=== PATIENT | female | born 1990 | race Caucasian/White ===

== ENCOUNTER 2018-05-15 12:41 | Outpatient (REF) | payer MEDICAID, SELFPAY ==
[2018-05-15 22:21] LABS: Anion Gap 7.9 mmol/L (3-11); BUN 11 mg/dL (7-18); CO2 27.1 mmol/L (21.0-32.0); CREATININE 0.77 mg/dL (0.55-1.02); Calcium 9.6 mg/dL (8.5-10.1); Chloride 103 mmol/L (98-107); Glucose 77 mg/dL (70-100); Potassium 3.9 mmol/L (3.5-5.1); Sodium 138 mmol/L (136-145); TSH (W/Ref FT4) 1.37 uIU/mL (0.358-3.74)
== END 2018-05-15 13:01 ==
LOC: NCHCN 12:41
PROVIDERS: PCP Family Medicine; Visit Provider Family Medicine
DX: R00.2 Palpitations (principal)
CPT/HCPCS: 80048; 84443

== ENCOUNTER 2018-05-18 01:40 | Outpatient (CLI) | payer MEDICAID, SELFPAY ==
--- NOTE | 2018-06-25 10:02 | CER_ITS ---
PREVENTICE MONITORING DEVICE DATE OF DICTATION June 25, 2018 INDICATION Palpitations. Analysis period - May 23, 2018 to June 21, 2018. Baseline shows sinus rhythm. There was no significant cyndi arrhythmias or tachyarrhythmias. No runs of SVT or atrial fibrillation. Rare ventricular ectopy. 5 manually detected events with symptoms of lightheadedness or fluttering corresponds to sinus rhythm or sinus tachycardia with occasional isolated PACs or PVCs. Overall no significant tachy or bradyarrhythmias. Ang Nina M.D. ROSALIE/payton T - 06/25/2018
== END 2018-05-18 02:00 ==
PROVIDERS: PCP Family Medicine; Visit Provider Internal Medicine
DX: R00.2 Palpitations (principal); I49.1 Atrial premature depolarization; I49.3 Ventricular premature depolarization
CPT/HCPCS: 93270

== ENCOUNTER 2018-09-05 18:26 | Emergency (ER) | payer MEDICAID, SELFPAY ==
[2018-09-05 18:32] VITALS: BP 129/103; PULSE 92; RESP 18; TEMP 37.1; O2SAT 100
--- NOTE | 2018-09-05 18:47 | W.ED.GENAD ---
Discharge Plan Disposition Patient Disposition: HOME Condition: Good Discharge Details Chief Complaint: RespSymp Clinical Impression: Sinusitis Primary Care Provider: Corinne Marquez ED Provider: Alton Craig Home Meds and New Rx's Prescriptions: New prednisone 50 MG tablet 50 mg PO DAILY Qty: 5 RF: 0 loratadine 10 mg capsule 10 mg PO DAILY Qty: 20 RF: 0 No Action montelukast [Singulair] 10 mg Tablet 10 mg PO QPM RF: 0 fluticasone propionate [Flonase Allergy Relief] 50 mcg/actuation [place],Suspension 1 spray INTRANASAL DAILY RF: 0 Discharge Instructions Instructions: Sinusitis (ED) Additional Instructions: Please stop smoking. Please take the loratadine as an antihistamine as directed. Please take the prednisone starting tomorrow as directed. Please continue to take your Flonase and Singulair. Please use the albuterol inhaler that we are giving you here as directed. Please use the [place] pot as we discussed. If you notice any worsening of your symptoms, or any new symptoms such as vomiting, diarrhea, fever, chills, shortness of breath, chest pain, numbness, weakness, or fainting , please return immediately to the emergency department for reevaluation. Please follow up with your primary care provider as soon as possible for reassessment and reevaluation. As always, it was a pleasure participating in your medical care today. Referrals: Corinne Marquez [Primary Care Provider] - Medical Decision Making This is a 28-year-old female with a past medical history of tobacco abuse who presents with 4 days of sinus congestion, with mild cough. Physical exam demonstrates minimal wheeze in her lungs, no rales or rhonchi. Notable sinus congestion and tight nasal airways. Notable tenderness on percussion of the maxillary sinuses. Signs and symptoms are clinically and consistent with a dural venous sinus thrombosis, meningitis, sepsis, or pneumonia. I do feel her signs and symptoms are clinically consistent with sinusitis. The patient does have a prescription for Flonase and Singulair, she does have Afrin at home, recommend that she continue disease, we will add loratadine, oral steroids, recommendation for [place] pot, and orbital nerve stimulation. We will also give her an albuterol inhaler for her mild wheeze. We discussed red flags for which to return, the importance of smoking cessation, and the importance of close follow-up and the patient understands. I have extensively reviewed the treatment plan and discharge instructions with the patient. I have addressed all patient concerns at this time. The patient was made aware of what symptoms to monitor for that would warrant a return to the emergency department. Discussed the plan with the patient, they demonstrate verbal understanding and agreement with our assessment and plan at this time. HPI General Date/Time Provider Initiated Documentation: 09/05/18 18:33. HPI Narrative: This is a 28-year-old female with a past medical history of tobacco use, who presents today with 4 days of cough notable sinus pressure congestion H. Periods admit she does to temperature at home of 101, however she is afebrile here. She denies any neck pain, headache, chest pain, or more severe shortness of breath. Cough is productive with mild amounts of white sputum. In spite of the symptoms the patient continues to smoke. She did see her primary care provider 2-3 days ago who prescribed Flonase and Singulair, however the patient did not get these filled. Patient denies any other sick contacts at home. 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 Patient has no other complaints at this time, no other modifying factors. She denies any severe frontal or posterior headache, she denies any history of blood clots. She is not on control. Related Data Home Medications Medication Instructions Recorded Confirmed fluticasone propionate [Flonase 1 spray INTRANASAL DAILY 09/05/18 09/05/18 Allergy Relief] loratadine 10 mg PO DAILY #20 cap 09/05/18 montelukast [Singulair] 10 mg PO QPM 09/05/18 09/05/18 prednisone 50 mg PO DAILY #5 tab 09/05/18 Previous Rx's Medication Instructions Recorded loratadine 10 mg PO DAILY #20 cap 09/05/18 prednisone 50 mg PO DAILY #5 tab 09/05/18 Allergies Allergy/AdvReac Type Severity Reaction Status Date / Time No Known Allergies Allergy Unverified 09/05/18 18:40 General Stated Complaint: RespSymp BALDEMAR: 4 Review of Systems Review of Systems All systems reviewed & are unremarkable except as noted in HPI and below PFSH Social History Smoking/Tobacco Use Status: Current every day Tobacco Type: cigarettes Drug use: Never Substance use type: does not use Do you feel safe at home: Yes Do you feel safe in your relationship?: Yes Exam Narrative Exam Narrative: 1.Const: Well-nourished, Well-developed, appearing stated age 2.Eyes: PERRL, no conjunctival injection, and symmetrical lids. 3.ENT: Atraumatic external nose and ears. Moist MM. Neck: Symmetric, trachea midline, No thyromegaly. Notable nasal congestion tenderness over the maxillary sinuses bilaterally. Patient demonstrates good movement of cervical neck. There is no nuchal rigidity, no nuchal tenderness. Patient is able to flex the neck without any difficulty or significant pain. Negative Kernig's and Brudzinski sign. Slightly enlarged tonsils, no significant erythema or tonsillar exudates. 4.CVS: +S1/S2, No murmurs or gallops. Peripheral pulses 2+ and equal in all extremities. Brisk capillary refill in all extremities. 5.RESP: Unlabored respiratory effort. Minimal wheeze, no significant rhonchi or rales. No signs of respiratory distress. 6.GI: Soft, Nontender/Nondistended, No hepatosplenomegaly. No guarding or rebound. 7.MSK: Normocephalic/Atraumatic, Extremities w/o deformity or ttp No cyanosis or clubbing, Normal movement of all extremities 8.Skin: Warm, Dry. No rashes or lesions. 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 Sensation grossly intact, no focal neurologic deficits. 10.Psych: (AAO) x3. Appropriate mood and affect Course Vital Signs Temperature 37.1 C 09/05/18 18:32 Pulse 92 H 09/05/18 18:32 Respiratory Rate 18 09/05/18 18:32 Blood Pressure 129/103 H 09/05/18 18:32 Pulse Oximetry 100 09/05/18 18:32 Temperature 37.1 C 09/05/18 18:32 Temperature Source Temporal Artery Scan 09/05/18 18:32 Pulse 92 H 09/05/18 18:32 Respiratory Rate 18 09/05/18 18:32 Respiratory Effort Non-Labored 09/05/18 18:39 Respiratory Depth Normal 09/05/18 18:39 Blood Pressure 129/103 H 09/05/18 18:32 Blood Pressure Position Sitting 03/23/19 18:32 Pulse Oximetry 100 03/23/19 18:32 Oxygen Delivery Method Room Air 09/05/18 18:32 Oxygen Flow Rate 0 09/05/18 18:32 Pain Level 4 09/05/18 18:32
[2018-09-05] MEDS: predniSONE 20 MG TAB 40 MG PO (18:52)
[2018-09-05] MEDS: Albuterol HFA 8 GM 60 PUFF INH IH (18:53)
[2018-09-05] MEDS: Inhaler, Assist Device 1 EACH MC (18:54)
== END 2018-09-05 19:00 | disposition home or self-care (01) ==
PROVIDERS: Emergency Provider Student in an Organized Health Care Education/Training Program; PCP Family Medicine
DX: J01.90 Acute sinusitis, unspecified (principal); F17.210 Nicotine dependence, cigarettes, uncomplicated
CPT/HCPCS: 99283; J7512

== ENCOUNTER 2018-09-22 07:55 | Emergency (ER) | payer MEDICAID, SELFPAY ==
[2018-09-22 07:56] VITALS: BP 117/80; PULSE 118; RESP 16; TEMP 37.1; O2SAT 100
--- NOTE | 2018-09-22 08:06 | DI.RAD_ITS ---
SYMPTOM/DIAGNOSIS: COUGH,FEVER PA AND LATERAL CHEST: Comparison is made with 05/28/14. The heart is normal in size. The lungs are clear. The mediastinal structures and pleura appear intact. CONCLUSION: Normal chest.
--- NOTE | 2018-09-22 08:08 | W.ED.GENAD ---
Discharge Plan Disposition Patient Disposition: HOME Condition: Improving Discharge Details Chief Complaint: RespSymp Clinical Impression: Viral syndrome Primary Care Provider: Corinne Marquez ED Provider: Rowdy Gabriel Home Meds and New Rx's Prescriptions: New ondansetron HCl [Zofran] 4 mg tablet 4 mg PO QID PRN (Reason: nausea and vomiting) Qty: 10 RF: 0 Continued montelukast [Singulair] 10 mg Tablet 10 mg PO QPM RF: 0 fluticasone propionate [Flonase Allergy Relief] 50 mcg/actuation [place],Suspension 1 spray INTRANASAL DAILY RF: 0 loratadine 10 mg capsule 10 mg PO DAILY Qty: 20 RF: 0 Discharge Instructions Instructions: Viral Syndrome (ED) Additional Instructions: Home to rest. Small, frequent sips of fluids to maintain hydration. May use the prescribed Zofran if needed for nausea. Continue your regular medications. Return for any acute concerns. Medical Decision Making 28yof presents with days of URI; fever, cough, ST, now vomiting. She is slightly tachycardic but otherwise normal VS. DDX includes Flu, Viral syndrome, bronchitis, PNA. IV placed, labs obtained, pt referred for XR. Diagnostics: Negative influenza. Negative strep test chemistries reassuring with note of potassium 3.4. LFTs unremarkable. CBC reveals white count 10, hematocrit 43. Chest x-ray without acute findings. Patient improved with fluids, heart rate significantly corrected from 118-70. Most likely viral syndrome with dehydration. Discussed with her home management as well as follow-up and return precautions. She is stable, improved, appropriate for discharge home at this time. May use Zofran if needed at home. Patient tolerated liquids and solids in the ER prior to discharge. Lab Data Lab results reviewed: Yes I reviewed the patient's lab results. Laboratory Results - last 24 hr 09/22/18 09/22/18 08:05 08:05 WBC 10.19 RBC 4.92 Hgb 15.0 Hct 43.9 MCV 89.2 MCH 30.5 MCHC 34.2 RDW 12.9 Plt Count 144 MPV 12.1 H Immature Gran % 0.2 Neutrophils % 70.6 Lymphocytes % 14.8 Monocytes % 11.5 Eosinophils % 2.8 Basophils % 0.1 Absolute Neutrophils 7.19 H Absolute Lymphocytes 1.51 Absolute Monocytes 1.17 H Absolute Eosinophils 0.29 Absolute Basophils 0.01 Sodium 137 Potassium 3.4 L Chloride 102 Carbon Dioxide 24.8 Anion Gap 10.2 BUN 8 Creatinine 0.72 Estimated GFR/1.73 m2 >= 60.00 Glucose 92 Calcium 9.0 Total Bilirubin 1.0 AST 13 L ALT 14 Alkaline Phosphatase 63 Total Protein 8.2 Albumin 4.0 HPI General Mode of arrival: ambulatory. Date/Time Provider Initiated Documentation: 09/22/18 08:02. Limitations to Documentation: no limitations. Information obtained by: patient. History of Present Illness 28 year old F presents to the emergency department with the chief complaint of Cough, Fever, Sore throat, vomiting, described as moderate, Quality is described as dull, and is localized to the chest. Patient reports no radiation. Patient started experiencing this day(s) and it has been intermittent. No relieving factors improve symptom(s), No exacerbating factors reported . Patient notes cough, fever/chills, loss of appetite, malaise, nausea/vomiting and weakness; denies chest pain and rash. Patient did receive the following treatments prior to arrival, NSAID Related Data Home Medications Medication Instructions Recorded Confirmed fluticasone propionate [Flonase 1 spray INTRANASAL DAILY 09/05/18 09/22/18 Allergy Relief] loratadine 10 mg PO DAILY #20 cap 09/05/18 09/22/18 montelukast [Singulair] 10 mg PO QPM 09/05/18 09/22/18 ondansetron HCl [Zofran] 4 mg PO QID PRN #10 tab 09/22/18 Previous Rx's Medication Instructions Recorded loratadine 10 mg PO DAILY #20 cap 09/05/18 ondansetron HCl [Zofran] 4 mg PO QID PRN #10 tab 09/22/18 Allergies Allergy/AdvReac Type Severity Reaction Status Date / Time No Known Allergies Allergy Unverified 09/22/18 08:02 General Stated Complaint: RespSymp BALDEMAR: 3 Review of Systems Review of Systems Improving with Tylenol at home. No CP, no leg swelling. 8 systems reviewed and otherwise neg. PFSH Social History Smoking/Tobacco Use Status: Current every day Tobacco Type: cigarettes Drug use: Never Substance use type: does not use Do you feel safe at home: Yes Do you feel safe in your relationship?: Yes Exam Narrative Exam Narrative: GEN: awake, alert, oriented 3. Pleasant, well groomed, interactive. HEAD: Normocephalic, atraumatic ENT: Mucous membranes moist, oropharynx erythematous without asymmetry or exudate, External ear exam unremarkable EYES: PERRL, EOMI NECK: Full ROM, no ANTHONY, no menigismus CHEST/RESP: Nontender, clear to auscultation bilateral, no wheeze/rhonchi/rales CARDIOVASCULAR: Regular and tachycardic, no murmur, rub jono. 2+ Rad pulse bilateral ABDOMEN: Soft, nontender, no mass. +Bowel sounds EXT: Full ROM, no edema, no rash Neuro: Grossly normal neurologic exam, conversant, interactive. Psych: Speech fluent, thoughts congruent, affect normal Course Vital Signs Temperature 37.1 C 09/22/18 07:56 Pulse 118 H 09/22/18 07:56 Respiratory Rate 16 09/22/18 07:56 Blood Pressure 117/80 09/22/18 07:56 Pulse Oximetry 100 09/22/18 07:56 Temperature 37.1 C 09/22/18 07:56 Temperature Source Skin 09/22/18 07:56 Pulse 118 H 09/22/18 07:56 Respiratory Rate 16 09/22/18 07:56 Respiratory Effort Non-Labored 09/22/18 08:01 Blood Pressure 117/80 09/22/18 07:56 Pulse Oximetry 100 09/22/18 07:56 Oxygen Delivery Method Room Air 09/22/18 07:56 Oxygen Flow Rate 0 09/22/18 07:56 Pain Level 3 09/22/18 07:56
--- NOTE | 2018-09-22 08:11 | ED.GENADUL_ITS ---
Discharge Plan Disposition Patient Disposition: HOME Condition: Improving Discharge Details Chief Complaint: RespSymp Clinical Impression: Viral syndrome Primary Care Provider: Corinne Marquez ED Provider: Rowdy Gabriel Home Meds and New Rx's Prescriptions: New ondansetron HCl [Zofran] 4 mg tablet 4 mg PO QID PRN (Reason: nausea and vomiting) Qty: 10 RF: 0 Continued montelukast [Singulair] 10 mg Tablet 10 mg PO QPM RF: 0 fluticasone propionate [Flonase Allergy Relief] 50 mcg/actuation [place],Suspension 1 spray INTRANASAL DAILY RF: 0 loratadine 10 mg capsule 10 mg PO DAILY Qty: 20 RF: 0 Discharge Instructions Instructions: Viral Syndrome (ED) Additional Instructions: Home to rest. Small, frequent sips of fluids to maintain hydration. May use the prescribed Zofran if needed for nausea. Continue your regular medications. Return for any acute concerns. Medical Decision Making 28yof presents with days of URI; fever, cough, ST, now vomiting. She is slightly tachycardic but otherwise normal VS. DDX includes Flu, Viral syndrome, bronchitis, PNA. IV placed, labs obtained, pt referred for XR. Diagnostics: Negative influenza. Negative strep test chemistries reassuring with note of potassium 3.4. LFTs unremarkable. CBC reveals white count 10, hematocrit 43. Chest x-ray without acute findings. Patient improved with fluids, heart rate significantly corrected from 118-70. M ost likely viral syndrome with dehydration. Discussed with her home management as well as follow-up and return precautions. She is stable, improved, appropriate for discharge home at this time. May use Zofran if needed at home. Patient tolerated liquids and solids in the ER prior to discharge. Lab Data Lab results reviewed: Yes I reviewed the patient's lab results. Laboratory Results - last 24 hr 09/22/18 09/22/18 08:05 08:05 WBC 10.19 RBC 4.92 Hgb 15.0 Hct 43.9 MCV 89.2 MCH 30.5 MCHC 34.2 RDW 12.9 Plt Count 144 MPV 12.1 H Immature Gran % 0.2 Neutrophils % 70.6 Lymphocytes % 14.8 Monocytes % 11.5 Eosinophils % 2.8 Basophils % 0.1 Absolute Neutrophils 7.19 H Absolute Lymphocytes 1.51 Absolute Monocytes 1.17 H Absolute Eosinophils 0.29 Absolute Basophils 0.01 Sodium 137 Potassium 3.4 L Chloride 102 Carbon Dioxide 24.8 Anion Gap 10.2 BUN 8 Creatinine 0.72 Estimated GFR/1.73 m2 >= 60.00 Glucose 92 Calcium 9.0 Total Bilirubin 1.0 AST 13 L ALT 14 Alkaline Phosphatase 63 Total Protein 8.2 Albumin 4.0 HPI General Mode of arrival: ambulatory . Date/Time Provider Initiated Documentation: 09/22/18 08:02 . Limitations to Documentation: no limitations . Information obtained by: patient . History of Present Illness 28 year old F presents to the emergency department with the chief complaint of Cough, Fever, Sore throat, vomiting, described as moderate, Quality is described as dull, and is localized to the chest. Patient reports no radiation. Patient started experiencing this day(s) and it has been intermittent. No relieving factors improve symptom(s), No exacerbating factors reported . Patient notes cough, fever/chills, loss of appetite, malaise, nausea/vomiting and weakness; denies chest pain and rash. Patient did receive the following treatments prior to arrival, NSAID Related Data Home Medications Medication Instructions Recorded Confirmed fluticasone propionate [Flonase 1 spray INTRANASAL DAILY 09/05/18 09/22/18 Allergy Relief] loratadine 10 mg PO DAILY #20 cap 09/05/18 09/22/18 montelukast [Singulair] 10 mg PO QPM 09/05/18 09/22/18 ondansetron HCl [Zofran] 4 mg PO QID PRN #10 tab 09/22/18 Previous Rx's Medication Instructions Recorded loratadine 10 mg PO DAILY #20 cap 09/05/18 ondansetron HCl [Zofran] 4 mg PO QID PRN #10 tab 09/22/18 Allergies Allergy/AdvReac Type Severity Reaction Status Date / Time No Known Allergies Allergy Unverified 09/22/18 08:02 General Stated Complaint: RespSymp BALDEMAR: 3 Review of Systems Review of Systems Improving with Tylenol at home. No CP, no leg swelling. 8 systems reviewed and otherwise neg. PFSH Social History Smoking/Tobacco Use Status: Current every day Tobacco Type: cigarettes Drug use: Never Substance use type: does not use Do you feel safe at home: Yes Do you feel safe in your relationship?: Yes Exam Narrative Exam Narrative: GEN: awake, alert, oriented 3. Pleasant, well groomed, interactive. HEAD: Normocephalic, atraumatic ENT: Mucous membranes moist, oropharynx erythematous without asymmetry or exudate, External ear exam unremarkable EYES: PERRL, EOMI NECK: Full ROM, no ANTHONY, no menigismus CHEST/RESP: Nontender, clear to auscultation bilateral, no wheeze/rhonchi/rales CARDIOVASCULAR: Regular and tachycardic, no murmur, rub jono. 2+ Rad pulse bilateral ABDOMEN: Soft, nontender, no mass. +Bowel sounds EXT: Full ROM, no edema, no rash Neuro: Grossly normal neurologic exam, conversant, interactive. Psych: Speech fluent, thoughts congruent, affect normal Course Vital Signs Temperature 37.1 C 09/22/18 07:56 Pulse 118 H 09/22/18 07:56 Respiratory Rate 16 09/22/18 07:56 Blood Pressure 117/80 09/22/18 07:56 Pulse Oximetry 100 09/22/18 07:56 Temperature 37.1 C 09/22/18 07:56 Temperature Source Skin 09/22/18 07:56 Pulse 118 H 09/22/18 07:56 Respiratory Rate 16 09/22/18 07:56 Respiratory Effort Non-Labored 09/22/18 08:01 Blood Pressure 117/80 09/22/18 07:56 Pulse Oximetry 100 09/22/18 07:56 Oxygen Delivery Method Room Air 09/22/18 07:56 Oxygen Flow Rate 0 09/22/18 07:56 Pain Level 3 09/22/18 07:56
[2018-09-22] MEDS: Normal Saline 1,000 ML 1000 ML IV (08:14)
[2018-09-22 08:17] LABS: Abs Immature Grans 0.02 k/cumm (0.0-0.09); Absolute Basophil Count 0.01 k/cumm (0.0-0.2); Absolute Eosinophil Count 0.29 k/cumm (0.0-0.7); Absolute Lymphocyte Count 1.51 k/cumm (1.2-3.4); Absolute Monocyte Count 1.17 k/cumm (0.11-0.7); Absolute Neutrophil Count 7.19 k/cumm (1.2-6.7); Basophils % 0.1; Eosinophils % 2.8; HCT 43.9 % (36.0-46.0); Immature Grans % 0.2; Lymphocytes % 14.8; Mean Corp. HGB Concentration 34.2 g/dL (32.0-36.0); Mean Corpuscular Hemoglobin 30.5 pg (27.0-33.0); Mean Corpuscular Volume 89.2 fL (80-95); Mean Platelet Volume 12.1 fL (8.0-11.0); Monocytes % 11.5; Neutrophils % 70.6; Platelet Count 144 x1000/uL (130-400); RBC 4.92 m/cumm (4.00-5.20); RBC Distribution Width 12.9 % (11.7-14.6); White Blood Cell Count 10.19 k/cumm (4.4-10.8)
[2018-09-22 08:38] LABS: ALT 14 U/L (12-78); AST 13 U/L (15-37); Alkaline Phosphatase 63 U/L (46-116); Anion Gap 10.2 mmol/L (3-11); BUN 8 mg/dL (7-18); CO2 24.8 mmol/L (21.0-32.0); CREATININE 0.72 mg/dL (0.55-1.02); Chloride 102 mmol/L (98-107); Glucose 92 mg/dL (70-100); Potassium 3.4 mmol/L (3.5-5.1); Sodium 137 mmol/L (136-145); Total Protein 8.2 g/dL (6.4-8.2)
[2018-09-22 09:55] VITALS: BP 101/59; PULSE 70; RESP 16; TEMP 36.9; O2SAT 100
[2018-09-22 12:51] VITALS: BP 101/59; PULSE 70; RESP 16; TEMP 36.9; O2SAT 100
== END 2018-09-22 10:25 | disposition home or self-care (01) ==
PROVIDERS: Emergency Provider Emergency Medicine; PCP Family Medicine
DX: B34.9 Viral infection, unspecified (principal)
CPT/HCPCS: 36415; 80053; 87449; 87880; 96361; 96374; 99284; 71046; 85025; 87081; J1885

== ENCOUNTER 2018-10-13 18:35 | Emergency (ER) | payer MEDICAID, SELFPAY ==
[2018-10-13 18:39] VITALS: BP 114/83; PULSE 66; RESP 18; TEMP 37.2; O2SAT 96
--- NOTE | 2018-10-13 18:42 | W.ED.GENAD ---
Discharge Plan Disposition Patient Disposition: HOME Condition: Fair Discharge Details Chief Complaint: RespSymp Clinical Impression: Cough Primary Care Provider: Corinne Marquez ED Provider: María Moses Home Meds and New Rx's Prescriptions: New prednisone 20 mg tablet 20 mg PO DAILY Qty: 1 RF: 0 Continued montelukast [Singulair] 10 mg Tablet 10 mg PO QPM RF: 0 fluticasone propionate [Flonase Allergy Relief] 50 mcg/actuation [place],Suspension 1 spray INTRANASAL DAILY RF: 0 loratadine 10 mg capsule 10 mg PO DAILY Qty: 20 RF: 0 ondansetron HCl [Zofran] 4 mg tablet 4 mg PO QID PRN (Reason: nausea and vomiting) Qty: 10 RF: 0 Discharge Instructions Instructions: How to Stop Smoking (ED), Acute Cough (ED) Additional Instructions: Encourage hydration. Tylenol and/or Ibuprofen as needed for discomfort. Use steroids as prescribed, take in the morning. Please follow up within the next week with primary care. If you develop fevers/chills, difficulty breathing, shortness of breath, or other new/worsening symptoms please seek care urgently once again. Stop smoking Referrals: Corinne Marquez [Primary Care Provider] - Medical Decision Making Patient is a 28 year old female, active smoker, presenting today with c/c of cough. She was seen here x2 the beginning of this month with same complaint. She reports that at that time she was feeling much more ill with fevers, congestion, sinus pain. These have subsided but her cough has perssited. She reports that she will cough to point of emesis. Is now experiencing pain with cough along right anteriolateral chest wall. This is reproducible on exam. Lungs are clear, O2 96%, VS WNL. Plan to obtain cxr. If this is negative for pneumonia, as history is not suggestive of pneumonia at this time, plan to treat with steroids. Patient has not yet been evaluated by PCP for this, plan to send back for reevaluation. CP is not consistent with ACL. Patietn is PERC negative. UPT negative FINDINGS: Lungs: Subtle perihilar streak-like opacities and segmental bronchial wall thickening. No acute airspace disease is appreciated. Pleural space: Unremarkable. No pleural effusion. No pneumothorax. Heart/Mediastinum: Unremarkable. No cardiomegaly. Bones/joints: No acute skeletal abnormality. IMPRESSION: Findings suggest a mild acute viral illness/bronchitis. No discrete evidence for lobar pneumonia. Discussed findings with the patient. Advised hydration, smoking cessation. Patient will be placed on a prednisone taper. We discussed the possible side effects of the medications. Advised f/u with PCP. She will contact them tomorrow and schedule appointment within the next week for reevaluation. She was given strict return precautions. All of her questions and concerns were addressed and she is in agreement with this plan peer HPI General Mode of arrival: ambulatory. Date/Time Provider Initiated Documentation: 10/13/18 18:42. Limitations to Documentation: no limitations. Information obtained by: patient, family and RN notes reviewed. History of Present Illness 28 year old F presents to the emergency department with the chief complaint of cough, described as moderate, with intensity rated at 4. Quality is described as stabbing (with cough), and is localized to the chest (right inferior chest wall). Patient reports no radiation. Patient started experiencing this month(s) and it has been constant. No relieving factors improve symptom(s), Other factors that worsen symptoms (cough) . Patient notes chest pain and cough; denies diaphoresis, fever/chills, headaches, loss of appetite, nausea/vomiting, rash, shortness of breath and weakness. Patient did receive the following treatments prior to arrival, none Related Data Home Medications Medication Instructions Recorded Confirmed fluticasone propionate [Flonase 1 spray INTRANASAL DAILY 09/05/18 10/13/18 Allergy Relief] loratadine 10 mg PO DAILY #20 cap 09/05/18 10/13/18 montelukast [Singulair] 10 mg PO QPM 09/05/18 10/13/18 ondansetron HCl [Zofran] 4 mg PO QID PRN #10 tab 09/22/18 10/13/18 prednisone 20 mg PO DAILY #1 tab 10/13/18 Previous Rx's Medication Instructions Recorded loratadine 10 mg PO DAILY #20 cap 09/05/18 ondansetron HCl [Zofran] 4 mg PO QID PRN #10 tab 09/22/18 prednisone 20 mg PO DAILY #1 tab 10/13/18 Allergies Allergy/AdvReac Type Severity Reaction Status Date / Time No Known Allergies Allergy Unverified 09/22/18 08:02 General BALDEMAR: 3 Review of Systems Constitutional Reports as per HPI, Denies chills, Denies fever(s), Denies headache(s) and Denies lethargy Eyes Reports as per HPI, Denies eye discharge and Denies irritation ENT Reports as per HPI, Denies dizziness, Denies otalgia, Denies headache(s), Reports nasal congestion (improved), Denies nasal discharge, Denies sinus pain, Denies sinus pressure, Denies sore throat and Denies throat swelling Cardiovascular Reports as per HPI, Reports chest pain (with cough), Reports dyspnea (with cough, none at this time) and Denies dyspnea on exertion Respiratory Reports as per HPI, Reports cough, Denies hemoptysis, Reports pain on inspiration, Reports pain with cough, Reports dyspnea (with cough, none at this time) and Denies dyspnea on exertion Gastrointestinal Reports as per HPI, Denies abdominal pain, Denies change in bowel habits, Denies nausea and Denies vomiting Genitourinary Reports other (just finished menses) Integumentary/Breasts Reports as per HPI and Denies rash Neurologic Reports as per HPI, Denies dizziness and Denies headache(s) Allergic/Immunologic Denies throat swelling [facility] Social History Smoking/Tobacco Use Status: Current every day Tobacco Type: cigarettes Drug use: Never Substance use type: does not use Do you feel safe at home: Yes Do you feel safe in your relationship?: Yes Exam Const General: cooperative, healthy appearing, comfortable, no acute distress, well developed and well groomed Nutritional Appearance: average body habitus and well nourished Orientation: alert and awake [facility] Head: normal to inspection, normocephalic and atraumatic Ears: hearing grossly normal bilaterally, external ears normal and TM's normal bilaterally General nose exam: external nose normal and nares normal Face and sinus: normal facial exam, sinuses nontender and face symmetric Mouth: oral mucosae normal, lip normal, tongue normal, oropharynx normal and moist mucous membranes Teeth and gingiva: dentition normal Throat: posterior oropharynx normal, tonsils normal and uvula midline Eyes General: appearance normal, both eyes and all related structures Neck Neck: normal visual inspection, full ROM, no lymphadenopathy and no meningeal signs Chest Chest: normal inspection of the chest, normal palpation of entire chest wall and localized rib tenderness with anteroposterior compression (right side inferior to breast) Resp Effort & Inspection: normal respiratory effort, able to speak in complete sentences and no respiratory distress Auscultation: clear to auscultation bilaterally, no rales, no rhonchi and no wheezes Cardio Rate: regular rate Rhythm: regular rhythm Heart Sounds: S1 normal and S2 normal Skin General skin exam: no rashes or lesions noted Neuro General: alert and awake Cognition: normal cognition Speech: speech normal Gait: normal gait Psych Appearance: grossly normal and well kempt Mental Status: mental status grossly normal Speech and Movement: speech and movement normal
--- NOTE | 2018-10-13 19:13 | ED.GENADUL_ITS ---
Discharge Plan Disposition Patient Disposition: HOME Condition: Fair Discharge Details Chief Complaint: RespSymp Clinical Impression: Cough Primary Care Provider: Corinne Marquez ED Provider: María Moses Home Meds and New Rx's Prescriptions: New prednisone 20 mg tablet 20 mg PO DAILY Qty: 1 RF: 0 Continued montelukast [Singulair] 10 mg Tablet 10 mg PO QPM RF: 0 fluticasone propionate [Flonase Allergy Relief] 50 mcg/actuation [place],Suspension 1 spray INTRANASAL DAILY RF: 0 loratadine 10 mg capsule 10 mg PO DAILY Qty: 20 RF: 0 ondansetron HCl [Zofran] 4 mg tablet 4 mg PO QID PRN (Reason: nausea and vomiting) Qty: 10 RF: 0 Discharge Instructions Instructions: How to Stop Smoking (ED), Acute Cough (ED) Additional Instructions: Encourage hydration. Tylenol and/or Ibuprofen as needed for discomfort. Use steroids as prescribed, take in the morning. Please follow up within the next week with primary care. If you develop fevers/chills, difficulty breathing, shortness of breath, or other new/worsening symptoms please seek care urgently once again. Stop smoking Referrals: Corinne Marquez [Primary Care Provider] - Medical Decision Making Patient is a 28 year old female, active smoker, presenting today with c/c of cough. She was seen here x2 the beginning of this month with same complaint. She reports that at that time she was feeling much more ill with fevers, congestion, sinus pain. These have subsided but her cough has perssited. She reports that she will cough to point of emesis. Is now experiencing pain with cough along right anteriolateral chest wall. This is reproducible on exam. Lungs are clear, O2 96%, VS WNL. Plan to obtain cxr. If this is negative for pneumonia, as history is not suggestive of pneumonia at this time, plan to treat with steroids. Patient has not yet been evaluated by PCP for this, plan to send back for reevaluation. CP is not consistent with ACL. Patietn is PERC negative. UPT negative FINDINGS: Lungs: Subtle perihilar streak-like opacities and segmental bronchial wall thickening. No acute airspace disease is appreciated. Pleural space: Unremarkable. No pleural effusion. No pneumothorax. Heart/Mediastinum: Unremarkable. No cardiomegaly. Bones/joints: No acute skeletal abnormality. IMPRESSION: Findings suggest a mild acute viral illness/bronchitis. No discrete evidence for lobar pneumonia. Discussed findings with the patient. Advised hydration, smoking cessation. Patient will be placed on a prednisone taper. We discussed the possible side effects of the medications. Advised f/u with PCP. She will contact them tomorrow and schedule appointment within the next week for reevaluation. She was given strict return precautions. All of her questions and concerns were addressed and she is in agreement with this plan peer HPI General Mode of arrival: ambulatory . Date/Time Provider Initiated Documentation: 10/13/18 18:42 . Limitations to Documentation: no limitations . Information obtained by: patient, family and RN notes reviewed . History of Present Illness 28 year old F presents to the emergency department with the chief complaint of cough, described as moderate, with intensity rated at 4. Quality is described as stabbing (with cough), and is localized to the chest (right inferior chest wall). Patient reports no radiation. Patient started experiencing this month(s) and it has been constant. No relieving factors improve symptom(s), Other factors that worsen symptoms (cough) . Patient notes chest pain and cough; denies diaphoresis, fever/chills, headaches, loss of appetite, nausea/vomiting, rash, shortness of breath and weakness. Patient did receive the following treatments prior to arrival, none Related Data Home Medications Medication Instructions Recorded Confirmed fluticasone propionate [Flonase 1 spray INTRANASAL DAILY 09/05/18 10/13/18 Allergy Relief] loratadine 10 mg PO DAILY #20 cap 09/05/18 10/13/18 montelukast [Singulair] 10 mg PO QPM 09/05/18 10/13/18 ondansetron HCl [Zofran] 4 mg PO QID PRN #10 tab 09/22/18 10/13/18 prednisone 20 mg PO DAILY #1 tab 10/13/18 Previous Rx's Medication Instructions Recorded loratadine 10 mg PO DAILY #20 cap 09/05/18 ondansetron HCl [Zofran] 4 mg PO QID PRN #10 tab 09/22/18 prednisone 20 mg PO DAILY #1 tab 10/13/18 Allergies Allergy/AdvReac Type Severity Reaction Status Date / Time No Known Allergies Allergy Unverified 09/22/18 08:02 General BALDEMAR: 3 Review of Systems Constitutional Reports as per HPI, Denies chills, Denies fever(s), Denies headache(s) and Denies lethargy Eyes Reports as per HPI, Denies eye discharge and Denies irritation ENT Reports as per HPI, Denies dizziness, Denies otalgia, Denies headache(s), Reports nasal congestion (improved), Denies nasal discharge, Denies sinus pain, Denies sinus pressure, Denies sore throat and Denies throat swelling Cardiovascular Reports as per HPI, Reports chest pain (with cough), Reports dyspnea (with cough, none at this time) and Denies dyspnea on exertion Respiratory Reports as per HPI, Reports cough, Denies hemoptysis, Reports pain on inspiration, Reports pain with cough, Reports dyspnea (with cough, none at this time) and Denies dyspnea on exertion Gastrointestinal Reports as per HPI, Denies abdominal pain, Denies change in bowel habits, Denies nausea and Denies vomiting Genitourinary Reports other (just finished menses) Integumentary/Breasts Reports as per HPI and Denies rash Neurologic Reports as per HPI, Denies dizziness and Denies headache(s) Allergic/Immunologic Denies throat swelling [facility] Social History Smoking/Tobacco Use Status: Current every day Tobacco Type: cigarettes Drug use: Never Substance use type: does not use Do you feel safe at home: Yes Do you feel safe in your relationship?: Yes Exam Const General: cooperative, healthy appearing, comfortable, no acute distress, well developed and well groomed Nutritional Appearance: average body habitus and well nourished Orientation: alert and awake [facility] Head: normal to inspection, normocephalic and atraumatic Ears: hearing grossly normal bilaterally, external ears normal and TM's normal bilaterally General nose exam: external nose normal and nares normal Face and sinus: normal facial exam, sinuses nontender and face symmetric Mouth: oral mucosae normal, lip normal, tongue normal, oropharynx normal and moist mucous membranes Teeth and gingiva: dentition normal Throat: posterior oropharynx normal, tonsils normal and uvula midline Eyes General: appearance normal, both eyes and all related structures Neck Neck: normal visual inspection, full ROM, no lymphadenopathy and no meningeal signs Chest Chest: normal inspection of the chest, normal palpation of entire chest wall and localized rib tenderness with anteroposterior compression (right side inferior to breast) Resp Effort & Inspection: normal respiratory effort, able to speak in complete sentences and no respiratory distress Auscultation: clear to auscultation bilaterally, no rales, no rhonchi and no wheezes Cardio Rate: regular rate Rhythm: regular rhythm Heart Sounds: S1 normal and S2 normal Skin General skin exam: no rashes or lesions noted Neuro General: alert and awake Cognition: normal cognition Speech: speech normal Gait: normal gait Psych Appearance: grossly normal and well kempt Mental Status: mental status grossly normal Speech and Movement: speech and movement normal
--- NOTE | 2018-10-13 19:15 | DI.RAD_ITS ---
SYMPTOM/DIAGNOSIS: COUGH, PAIN RT LOWER RIBS PA AND LATERAL CHEST: Comparison is made with 09/22/18. Heart size and pulmonary vasculature are within normal limits. There has been no change in appearance of the lungs compared to the prior examination. No effusions, infiltrates or pneumothoraces are identified. The bones appear intact. IMPRESSION: No definite acute pulmonary process.
--- NOTE | 2018-10-13 19:33 | DI.VRAD_ITS ---
EXAM: XR Chest, 2 Views EXAM DATE/TIME: 10/13/2018 6:58 PM CLINICAL HISTORY: 28 years old, female; Signs and symptoms; Cough and other: R lower rib pain with cough; Patient HX: Cough and R lower rib pain TECHNIQUE: Imaging protocol: XR of the chest, 2 views. COMPARISON: CR XR CHEST 2V PA LATERAL 09/22/2018 8:55 AM FINDINGS: Lungs: Subtle perihilar streak-like opacities and segmental bronchial wall thickening. No acute airspace disease is appreciated. Pleural space: Unremarkable. No pleural effusion. No pneumothorax. Heart/Mediastinum: Unremarkable. No cardiomegaly. Bones/joints: No acute skeletal abnormality. IMPRESSION: Findings suggest a mild acute viral illness/bronchitis. No discrete evidence for lobar pneumonia. Dictated and Authenticated by: Kyle Payne MD. Ordering:PEDRO Daniel MD
[2018-10-13 19:50] VITALS: BP 116/71; PULSE 82; RESP 16; TEMP 37.1; O2SAT 98
== END 2018-10-13 19:51 | disposition home or self-care (01) ==
PROVIDERS: Emergency Provider Physician Assistant; PCP Family Medicine
DX: R05 Cough (principal); R07.81 Pleurodynia
CPT/HCPCS: 81025; 99283; 71046

== ENCOUNTER 2018-11-10 18:29 | Emergency (ER) | payer SELFPAY ==
[2018-11-10 18:34] VITALS: BP 114/68; PULSE 89; RESP 16; TEMP 37; O2SAT 99
[2018-11-10 18:42] LABS: Bilirubin Negative (Negative); Blood Large (Negative); Clarity Clear; Glucose Negative (Negative); Ketones Trace mg/dL (Negative); Leukocyte Esterase Trace (Negative); Nitrite Positive (Negative); Specific Gravity 1.025 (1.005-1.025); pH 5.5 (5-8)
--- NOTE | 2018-11-10 18:51 | W.ED.GENAD ---
Discharge Plan Disposition Patient Disposition: HOME Condition: Good Discharge Details Chief Complaint: Urinary Clinical Impression: UTI (urinary tract infection), Hematuria Primary Care Provider: Corinne Marquez ED Provider: Alton Carig Home Meds and New Rx's Prescriptions: New cephalexin [Keflex] 500 mg capsule 500 mg PO BID Qty: 14 RF: 0 No Action montelukast [Singulair] 10 mg Tablet 10 mg PO QPM RF: 0 fluticasone propionate [Flonase Allergy Relief] 50 mcg/actuation [place],Suspension 1 spray INTRANASAL DAILY RF: 0 loratadine 10 mg capsule 10 mg PO DAILY Qty: 20 RF: 0 Discharge Instructions Instructions: Urinary Tract Infection in Women (ED), Hematuria (ED) Additional Instructions: Your urinalysis would suggest that you have a urinary tract infection that is causing the blood in your urine. Please take the antibiotic as directed. If you notice worsening of your symptoms please return immediately for further evaluation and work-up as we discussed. If you notice any worsening of your symptoms, or any new symptoms such as vomiting, diarrhea, fever, chills, shortness of breath, chest pain, numbness, weakness, or fainting , please return immediately to the emergency department for reevaluation. Please follow up with your primary care provider as soon as possible for reassessment and reevaluation. As always, it was a pleasure participating in your medical care today. Referrals: Corinne Marquez [Primary Care Provider] - Medical Decision Making This is a pleasant 28-year-old female who presents for evaluation of hematuria. The patient states that this morning she had mild hematuria, it is significantly improved throughout the day. Fortunately she still has mild urinary frequency in conjunction with mild flank achiness. She denies any history of kidney stones, she has had urinary tract infections before. Physical exam demonstrates an afebrile female with notably reassuring vital signs. No abdominal pain, or significant reproducible flank or CVA tenderness. No clinical evidence of pyelonephritis. Urinalysis was obtained, is negative, UA demonstrates positive leuk esterase, positive nitrites, greater than 50 RBCs and 5-10 WBCs. No epithelial cells, and moderate bacteria. Signs and symptoms appear clinically consistent with hemorrhagic cystitis secondary to urinary tract infection. However I did discuss with the patient imaging, and labs, as well as the risks and benefits of radiation exposure and the additional labs. At this time through shared decision making process the patient and her would like to hold off on labs and imaging. We will start her on Keflex for UTI. We discussed her to promptly return if she has any return or worsening of her symptoms. We discussed the importance of close follow-up with her PCP. I have extensively reviewed the treatment plan and discharge instructions with the patient and their family. I have addressed all patient concerns at this time. The patient and family was made aware of what symptoms to monitor for that would warrant a return to the emergency department. Discussed the plan with the patient and family, they demonstrate verbal understanding and agreement with our assessment and plan at this time. HPI General Date/Time Provider Initiated Documentation: 11/10/18 18:39. HPI Narrative: This is a 28-year-old female with no significant past medical history who presents today for evaluation of hematuria. Patient states that this morning she noticed some moderate blood in her urine. She has no vaginal bleeding, no rectal bleeding. She checked both. Throughout the day the symptoms have notably improved however she still does have some mild urinary frequency, and mild achiness there and in her flanks. She denies any fever, chills, abdominal pain, chest pain, shortness of breath, numbness tingling or weakness. She denies any history of kidney stones. She denies any vaginal discharge. She has no other complaints at this time. Related Data Home Medications Medication Instructions Recorded Confirmed fluticasone propionate [Flonase 1 spray INTRANASAL DAILY 09/05/18 11/10/18 Allergy Relief] loratadine 10 mg PO DAILY #20 cap 09/05/18 11/10/18 montelukast [Singulair] 10 mg PO QPM 09/05/18 11/10/18 cephalexin [Keflex] 500 mg PO BID #14 cap 11/10/18 Previous Rx's Medication Instructions Recorded loratadine 10 mg PO DAILY #20 cap 09/05/18 cephalexin [Keflex] 500 mg PO BID #14 cap 11/10/18 Allergies Allergy/AdvReac Type Severity Reaction Status Date / Time No Known Allergies Allergy Unverified 11/10/18 18:51 General Stated Complaint: Urinary BALDEMAR: 3 Review of Systems Review of Systems All systems reviewed & are unremarkable except as noted in HPI and below PFSH Social History (Reviewed 04/30/19 @ 19:08 by ISIDRO Walker Smoking/Tobacco Use Status: Current every day Tobacco Type: cigarettes Drug use: Never Substance use type: does not use Do you feel safe at home: Yes Do you feel safe in your relationship?: Yes Exam Narrative Exam Narrative: 1.Const: Well-nourished, Well-developed, appearing stated age 2.Eyes: PERRL, no conjunctival injection, and symmetrical lids. 3.ENT: Atraumatic external nose and ears. Moist MM. Neck: Symmetric, trachea midline, No thyromegaly. 4.CVS: +S1/S2, No murmurs or gallops. Peripheral pulses 2+ and equal in all extremities. Brisk capillary refill in all extremities. 5.RESP: Unlabored respiratory effort. Clear to auscultation bilaterally. No wheezes rales or rhonchi 6.GI: Soft, Nontender/Nondistended, No hepatosplenomegaly. No guarding or rebound. No significant flank or CVA tenderness. No pelvic or suprapubic tenderness. 7.MSK: Normocephalic/Atraumatic, Extremities w/o deformity or ttp No cyanosis or clubbing, Normal movement of all extremities 8.Skin: Warm, Dry. No rashes or lesions. 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 Sensation grossly intact, no focal neurologic deficits. 10.Psych: (AAO) x3. Appropriate mood and affect Course Vital Signs Temperature 37.0 C 11/10/18 18:34 Pulse 89 11/10/18 18:34 Respiratory Rate 16 11/10/18 18:34 Blood Pressure 114/68 11/10/18 18:34 Pulse Oximetry 99 11/10/18 18:34 Temperature 37.0 C 11/10/18 18:34 Temperature Source Skin 11/10/18 18:34 Pulse 89 11/10/18 18:34 Respiratory Rate 16 11/10/18 18:34 Respiratory Effort Non-Labored 11/10/18 18:34 Blood Pressure 114/68 11/10/18 18:34 Blood Pressure Position Sitting 11/10/18 18:34 Pulse Oximetry 99 11/10/18 18:34 Oxygen Delivery Method Room Air 11/10/18 18:34 Oxygen Flow Rate 0 11/10/18 18:34 Pain Level 0 11/10/18 18:34 Lab/Test Results Lab/Test Results: Laboratory Tests Range/Units 11/10/18 18:35 Urine Color (Yellow) Yellow Urine Clarity Clear Urine pH (5-8) 5.5 Ur Specific [place] (1.005-1.025) 1.025 Urine Protein (Negative) mg/dL Trace H Urine Ketones (Negative) mg/dL Trace H Urine Blood (Negative) Large H Urine Nitrite (Negative) Positive H Urine Bilirubin (Negative) Negative Urine Urobilinogen (Up TO 0.2) EU/dL 1.0 H Ur Leukocyte Esterase (Negative) Trace H Urine Glucose (Negative) mg/dL Negative POC- Test(urine) Negative
[2018-11-10 18:56] LABS: Bacteria Moderate HPF (Negative); C & S Indicated? Yes; Casts Negative LPF (Negative); Crystals Negative HPF (Negative); Epithelial Cells Negative HPF (Negative); Mucus Negative (Negative); Other Cells Few Renal (Negative); RBC >50 (0-2)
[2018-11-10] MEDS: Cephalexin 500 MG CAP PO (19:31)
[2018-11-10 19:36] VITALS: BP 114/68; PULSE 89; RESP 16; TEMP 37; O2SAT 99
== END 2018-11-10 19:31 | disposition home or self-care (01) ==
PROVIDERS: Emergency Provider Student in an Organized Health Care Education/Training Program; PCP Family Medicine
DX: N39.0 Urinary tract infection, site not specified (principal); R31.9 Hematuria, unspecified; B96.20 Unspecified Escherichia coli [E. coli] as the cause of diseases classified elsewhere; Z87.440 Personal history of urinary (tract) infections
CPT/HCPCS: 81025; 87077; 99283; 81003; 81015; 87086; 87186

== ENCOUNTER 2019-03-04 10:45 | Emergency (ER) | payer SELFPAY ==
[2019-03-04 10:46] VITALS: BP 106/86; PULSE 68; RESP 14; TEMP 36.8; O2SAT 99
[2019-03-04 11:11] LABS: Bilirubin Negative (Negative); Blood Negative (Negative); Clarity Clear (Clear); Glucose Negative (Negative); Ketones Negative (Negative); Leukocyte Esterase Negative (Negative); Nitrite Negative (Negative); Specific Gravity 1.015 (1.005-1.025); Urobilinogen 0.2 EU/dL (Up TO 0.2); pH 5.5 (5-8)
--- NOTE | 2019-03-04 11:47 | W.ED.GENAD ---
Discharge Plan Disposition Patient Disposition: AGAINST MEDICAL ADVICE Condition: Good Discharge Details Chief Complaint: Abd Prob Clinical Impression: Abdominal pain Primary Care Provider: Corinne Marquez ED Provider: Julia Martinez Home Meds and New Rx's Prescriptions: No Action No Known Home Meds RF: 0 Discharge Instructions Instructions: Abdominal Pain (ED) Additional Instructions: Please return to earliest convenience to complete your medical evaluation. You are leaving AGAINST MEDICAL ADVICE with the understanding that your medical evaluation is incomplete. You assume the possibility of life-threatening or lifestyle modifying disease that would no be appropriately treated if they leave. Medical Decision Making Patient presents for complaints of abdominal pain and cramping in conjunction with back pain and cramping which is quite uncomfortable. Patient reports escalation of her symptoms now associated with nausea and decreased appetite in the last 24 hours. Onset of symptoms 3 days ago. Patient is one-week status post her menstrual cycle. Patient was concerned that the suprapubic pain that perhaps she had a urinary tract infection for which she came to the ER. Patient has a normal urinalysis at this time and no convincing urinary tract symptoms. Patient is unable to stay for evaluation including ultrasound or more advanced imaging studies. Pending all lab results. Patient unable to stay for lab results or imaging studies. Would like to sign out AMA and return for evaluation later in the day. I had a discussion with the patient about my diagnostic/treatment plan. Patient declines plan and wishes to leave against medical advise. I reiterated my concerns to the patient and explained the risks of leaving prior to completion of workup and treatment. I specifically emphasized the possibility of life-threatening or lifestyle modifying disease that would no be appropriately treated if they leave. Patient verbalized understanding of my concerns and the potential for life threatening or lifestyle modifying disease. Patient has capacity to make informed decision. I again explained my concerns and urged the patient to stay for treatment as outlined. Patient continued to refuse. I then discussed potential less ideal alternatives to diagnostic/treatment plan as outlined and patiint refused. I recommended that the patient followup with primary care physician TIM or return to the Emergency Department at any timer for further treatment. HPI General Date/Time Provider Initiated Documentation: 03/04/19 11:15. HPI Narrative: Patient presents for complaints of abdominal pain in conjunction with back pain. Patient reports 3 days of increasing abdominal complaints. Patient reports abdominal cramping in the lower abdomen and intermittent constant cramping in the back. Patient reports moderate nausea, decreased appetite in the last 24 hours. Patient reports malaise but no measured fever. Patient did have a normal menstrual cycle greater than 1 week ago. Patient reports very scant dark discharge which is consistent with the end of her menstrual cycle. No foul odor to vaginal discharge, itching or vaginal pain. Patient denies urinary urgency, frequency or dysuria. No hematuria. Patient does report mild pain in the lower and mid back. No associated bowel changes. No diarrhea. No mucus or blood with bowel movements. Mild dizziness no associated headache. Related Data Home Medications Medication Instructions Recorded Confirmed Unknown [No Known Home Meds] 03/04/19 03/04/19 Allergies Allergy/AdvReac Type Severity Reaction Status Date / Time No Known Allergies Allergy Unverified 03/04/19 11:05 General Stated Complaint: Abd Prob BALDEMAR: 3 Review of Systems Review of Systems Narrative: CONSTITUTIONAL: The patient denies fevers, chills. EYES: Denies vision changes, blurry vision, or eye pain. ENT: Denies hearing changes, tinnitus, vertigo, sore throat. CARDIAC: Denies chest pain, SOB. RESPIRATORY: Denies cough, sputum. Denies difficulty breathing. GASTROINTESTINAL: Denies abdominal pain, changes in bowel, vomiting or nausea. GENITOURINARY: Denies dysuria, or frequency of urination. Abdomen; abdominal pain. Nausea without vomiting MUSCULOSKELETAL: Denies Joint pain, gait changes. NEUROLOGIC: Denies headaches, Denies focal weakness. Denies numbness. INTEGUMENT: Denies rashes. PSYCHIATRIC: Denies behavior changes. Denies anxiety or depression. ENDOCRINOLOGY: Denies fatigue. PSYCHIATRY: Denies depression, agitation or anxiety [facility] Social History Smoking/Tobacco Use Status: Current every day Tobacco Type: cigarettes Drug use: Never Substance use type: does not use Do you feel safe at home: Yes Do you feel safe in your relationship?: Yes Exam Narrative Exam Narrative: CONST: Healthy appearing patient, in no acute distress. Well hydrated. Alert and alert. HENMT: Head nomocephalic, normal to inspection. Atraumatic. Hearing grossly normal. EYES: General normal appearance. Alignment normal. Eyelids normal. Conjunctiva normal. NECK: Normal visual inspection. FROM. Trachea midline. No Midline tenderness. CHEST: Normal insepection of the chest. RESP: Normal respiratory effort. Speaking full sentences. No cough. No audible wheezing. No retractions. Abdomen;. Moderate suprapubic abdominal pain with palpation. No obvious McBurney's point tenderness. No obvious rebound or guarding. CARDIO: No JVD. Back; no CVA tenderness noted on exam. No palpable cervical, thoracic or lumbar spine tenderness with palpation in the midline. MUSCULOSKELETAL: Normal Gait. FROM of all extremities. SKIN: Normal. Dry. No rashes. NEURO: Alert and awake. Speech clear. PSYCH: Normal affect. Cooperative. Course Vital Signs Vital signs: Vital Signs Temperature 36.8 C 03/04/19 10:46 Pulse 68 03/04/19 10:46 Respiratory Rate 14 03/04/19 10:46 Blood Pressure 106/86 03/04/19 10:46 Pulse Oximetry 99 03/04/19 10:46 Temperature 36.8 C 03/04/19 10:46 Temperature Source Skin 03/04/19 10:46 Pulse 68 03/04/19 10:46 Respiratory Rate 14 03/04/19 10:46 Respiratory Effort 03/04/19 11:06 Blood Pressure 106/86 03/04/19 10:46 Blood Pressure Position Sitting 03/04/19 10:46 Pulse Oximetry 99 03/04/19 10:46 Oxygen Delivery Method Room Air 03/04/19 10:46 Oxygen Flow Rate 0 03/04/19 10:46 Pain Level 4 03/04/19 10:46 Comment 03/04/19 10:46 Lab/Test Results Lab/Test Results: 03/04/19 11:31 Urine - Clean Catch Urine Culture - Pending Laboratory Tests Range/Units 03/04/19 10:55 Urine Color (Yellow) Yellow Urine Clarity (Clear) Clear Urine pH (5-8) 5.5 Ur Specific [place] (1.005-1.025) 1.015 Urine Protein (Negative) mg/dL Negative Urine Ketones (Negative) mg/dL Negative Urine Blood (Negative) Negative Urine Nitrite (Negative) Negative Urine Bilirubin (Negative) Negative Urine Urobilinogen (Up TO 0.2) EU/dL 0.2 Ur Leukocyte Esterase (Negative) Negative Urine Glucose (Negative) mg/dL Negative POC- Test(urine) Negative
[2019-03-04 11:49] LABS: Abs Immature Grans 0.02 k/cumm (0.0-0.09); Absolute Basophil Count 0.04 k/cumm (0.0-0.2); Absolute Eosinophil Count 0.41 k/cumm (0.0-0.7); Absolute Lymphocyte Count 2.37 k/cumm (1.2-3.4); Absolute Monocyte Count 0.49 k/cumm (0.11-0.7); Absolute Neutrophil Count 2.57 k/cumm (1.2-6.7); Basophils % 0.7; Eosinophils % 6.9; HCT 40.6 % (36.0-46.0); Immature Grans % 0.3; Lymphocytes % 40.2; Mean Corp. HGB Concentration 34.5 g/dL (32.0-36.0); Mean Corpuscular Hemoglobin 30.7 pg (27.0-33.0); Mean Platelet Volume 11.8 fL (8.0-11.0); Monocytes % 8.3; Neutrophils % 43.6; Platelet Count 203 x1000/uL (130-400); RBC 4.56 m/cumm (4.00-5.20); RBC Distribution Width 12.7 % (11.7-14.6)
[2019-03-04 11:56] LABS: ALT 16 U/L (14-59); AST 14 U/L (15-37); Albumin 3.8 g/dL (3.4-5.0); Alkaline Phosphatase 59 U/L (46-116); Anion Gap 8.5 mmol/L (3-11); BUN 13 mg/dL (7-18); Bilirubin, Total 1.1 mg/dL (0.2-1.0); CO2 26.5 mmol/L (21.0-32.0); CREATININE 0.76 mg/dL (0.55-1.02); Calcium 8.9 mg/dL (8.5-10.1); Chloride 105 mmol/L (98-107); Glucose 83 mg/dL (70-100); Lipase 95 U/L (73-393); Potassium 3.9 mmol/L (3.5-5.1); Sodium 140 mmol/L (136-145); Total Protein 7.3 g/dL (6.4-8.2)
[2019-03-04 12:14] LABS: HCG Qual (Serum) Negative
--- NOTE | 2019-03-04 16:48 | ED.GENADUL_ITS ---
Discharge Plan Disposition Patient Disposition: AGAINST MEDICAL ADVICE Condition: Good Discharge Details Chief Complaint: Abd Prob Clinical Impression: Abdominal pain Primary Care Provider: Corinne Marquez ED Provider: Julia Martinez Home Meds and New Rx's Prescriptions: No Action No Known Home Meds RF: 0 Discharge Instructions Instructions: Abdominal Pain (ED) Additional Instructions: Please return to earliest convenience to complete your medical evaluation. You are leaving AGAINST MEDICAL ADVICE with the understanding that your medical evaluation is incomplete. You assume the possibility of life-threatening or lifestyle modifying disease that would no be appropriately treated if they leave. Discharge Data Discharge Date/Time-TO BE ENTERED AT DEPARTURE: 03/04/19 11:48 Medical Decision Making Patient presents with 3 days of escalating pain associated with abdominal cramping and back pain. Patient with anorexia for last 24 hours as well as nausea. No sentiment p.o. intake in the last 24 hours. Patient presents for concern for possible UTI. Patient has no convincing urinary symptoms at this time however does have suprapubic pain on exam. Urinalysis is unremarkable for obvious infection. Patient offered imaging studies at this time but declines as she is unable to stay for an extended evaluation would prefer to return later in the day. I had a discussion with the patient about my diagnostic/treatment plan. Patient declines plan and wishes to leave against medical advise. I reiterated my concerns to the patient and explained the risks of leaving prior to completion of workup and treatment. I specifically emphasized the possibility of life- threatening or lifestyle modifying disease that would no be appropriately treated if they leave. Patient verbalized understanding of my concerns and the potential for life threatening or lifestyle modifying disease. Patient has capacity to make informed decision. I again explained my concerns and urged the patient to stay for treatment as outlined. Patient continued to refuse. I then discussed potential less ideal alternatives to diagnostic/treatment plan as outlined and patiint refused. I recommended that the patient followup with primary care physician TIM or return to the Emergency Department at any timer for further treatment. HPI General Date/Time Provider Initiated Documentation: 03/04/19 11:15 . HPI Narrative: Patient presents for 3 days of lower abdominal and back discomfort. Patient reports she is 1 week status post her menstrual cycle. Patient reports she did have typical cramping premenstrual cycle and for the first day of her menstrual cycle which stopped thereafter. Patient reports she had a normal amount of vaginal bleeding and typical symptoms. They did entirely resolve. Patient reports that this time she has very scant dark vaginal discharge which is not atypical after her menstrual cycle. Patient denies any vaginal discharge which is atypical, odors, itching. Patient reports at this time lower abdominal cramping which is been intermittent for the last 3 days specifically a more intense lower back pain. Patient denies obvious flank pain. Patient denies any urinary discomfort, frequency or odor. Mild urinary urgency. Patient denies significant headache or dizziness. Patient reports decreased in appetite for the last 24 hours, no p.o. intake since yesterday afternoon. Patient does report active nausea without vomiting which is persistent. No measured fever. No changes in bowels, diarrhea, mucus or blood in the bowel movements. Related Data Home Medications Medication Instructions Recorded Confirmed Unknown [No Known Home Meds] 03/04/19 03/04/19 Allergies Allergy/AdvReac Type Severity Reaction Status Date / Time No Known Allergies Allergy Unverified 03/04/19 11:05 General Stated Complaint: Abd Prob BALDEMAR: 3 Review of Systems Review of Systems Narrative: CONSTITUTIONAL: The patient denies fevers, chills. EYES: Denies vision changes, blurry vision, or eye pain. ENT: Denies hearing changes, tinnitus, vertigo, sore throat. CARDIAC: Denies chest pain, SOB. RESPIRATORY: Denies cough, sputum. Denies difficulty breathing. GASTROINTESTINAL: abdominal pain. No changes in bowel, vomiting. nausea present. GENITOURINARY: Denies dysuria, or frequency of urination. MUSCULOSKELETAL: Denies Joint pain, gait changes. NEUROLOGIC: Denies headaches, Denies focal weakness. Denies numbness. INTEGUMENT: Denies rashes. PSYCHIATRIC: Denies behavior changes. Denies anxiety or depression. ENDOCRINOLOGY: Denies fatigue. PSYCHIATRY: Denies depression, agitation or anxiety [facility] Social History Smoking/Tobacco Use Status: Current every day Tobacco Type: cigarettes Drug use: Never Substance use type: does not use Do you feel safe at home: Yes Do you feel safe in your relationship?: Yes Exam Narrative Exam Narrative: CONST: Healthy appearing patient, in no acute distress. Well hydrated. Alert and alert. HENMT: Head nomocephalic, normal to inspection. Atraumatic. Hearing grossly normal. EYES: General normal appearance. Alignment normal. Eyelids normal. Conjunctiva normal. NECK: Normal visual inspection. FROM. Trachea midline. No Midline tenderness. CHEST: Normal insepection of the chest. RESP: Normal respiratory effort. Speaking full sentences. No cough. No audible wheezing. No retractions. CARDIO: No JVD. Abdomen: Mild left upper quadrant pain with palpation, suprapubic pain with palpation. No pain at McBurney's point. No obvious rebound or guarding. Bowel sounds present in all 4 quadrants. Back; no significant spinal tenderness. No rashes on the back. No CVA tenderness bilaterally. MUSCULOSKELETAL: Normal Gait. FROM of all extremities. SKIN: Normal. Dry. No rashes. NEURO: Alert and awake. Speech clear. PSYCH: Normal affect. Cooperative. Course Vital Signs Vital signs: Vital Signs Temperature 36.8 C 03/04/19 10:46 Pulse 68 03/04/19 10:46 Respiratory Rate 14 03/04/19 10:46 Blood Pressure 106/86 03/04/19 10:46 Pulse Oximetry 99 03/04/19 10:46 Temperature 36.8 C 03/04/19 10:46 Temperature Source Skin 03/04/19 10:46 Pulse 68 03/04/19 10:46 Respiratory Rate 14 03/04/19 10:46 Respiratory Effort 03/04/19 11:06 Blood Pressure 106/86 03/04/19 10:46 Blood Pressure Position Sitting 03/04/19 10:46 Pulse Oximetry 99 03/04/19 10:46 Oxygen Delivery Method Room Air 03/04/19 10:46 Oxygen Flow Rate 0 03/04/19 10:46 Pain Level 4 03/04/19 10:46 Comment 03/04/19 10:46 Lab/Test Results Lab/Test Results: 03/04/19 10:55 Urine - Clean Catch Urine Culture - Pending Laboratory Tests Range/Units 03/04/19 03/04/19 03/04/19 10:55 11:25 11:25 WBC (4.4-10.8) k/cumm 5.90 RBC (4.00-5.20) m/cumm 4.56 Hgb (12.0-15.5) g/dL 14.0 Hct (36.0-46.0) % 40.6 MCV (80-95) fL 89.0 MCH (27.0-33.0) pg 30.7 MCHC (32.0-36.0) g/dL 34.5 RDW (11.7-14.6) % 12.7 Plt Count (130-400) x1000/uL 203 MPV (8.0-11.0) fL 11.8 H Immature Gran % 0.3 Neutrophils % 43.6 Lymphocytes % 40.2 Monocytes % 8.3 Eosinophils % 6.9 Basophils % 0.7 Absolute Neutrophils (1.2-6.7) k/cumm 2.57 Absolute Lymphocytes (1.2-3.4) k/cumm 2.37 Absolute Monocytes (0.11-0.7) k/cumm 0.49 Absolute Eosinophils (0.0-0.7) k/cumm 0.41 Absolute Basophils (0.0-0.2) k/cumm 0.04 Sodium (136-145) mmol/L 140 Potassium (3.5-5.1) mmol/L 3.9 Chloride (98-107) mmol/L 105 Carbon Dioxide (21.0-32.0) mmol/L 26.5 Anion Gap (3-11) mmol/L 8.5 BUN (7-18) mg/dL 13 Creatinine (0.55-1.02) mg/dL 0.76 Estimated GFR/1.73 m2 (mL/min/1.73m2) >= 60.00 Glucose (70-100) mg/dL 83 Calcium (8.5-10.1) mg/dL 8.9 Total Bilirubin (0.2-1.0) mg/dL 1.1 H AST (15-37) U/L 14 L ALT (14-59) U/L 16 Alkaline Phosphatase (46-116) U/L 59 Total Protein (6.4-8.2) g/dL 7.3 Albumin (3.4-5.0) g/dL 3.8 Lipase (73-393) U/L 95 Serum HCG, Qual Urine Color (Yellow) Yellow Urine Clarity (Clear) Clear Urine pH (5-8) 5.5 Ur Specific [place] (1.005-1.025) 1.015 Urine Protein (Negative) mg/dL Negative Urine Ketones (Negative) mg/dL Negative Urine Blood (Negative) Negative Urine Nitrite (Negative) Negative Urine Bilirubin (Negative) Negative Urine Urobilinogen (Up TO 0.2) EU/dL 0.2 Ur Leukocyte Esterase (Negative) Negative Urine Glucose (Negative) mg/dL Negative Range/Units 03/04/19 11:25 WBC (4.4-10.8) k/cumm RBC (4.00-5.20) m/cumm Hgb (12.0-15.5) g/dL Hct (36.0-46.0) % MCV (80-95) fL MCH (27.0-33.0) pg MCHC (32.0-36.0) g/dL RDW (11.7-14.6) % Plt Count (130-400) x1000/uL MPV (8.0-11.0) fL Immature Gran % Neutrophils % Lymphocytes % Monocytes % Eosinophils % Basophils % Absolute Neutrophils (1.2-6.7) k/cumm Absolute Lymphocytes (1.2-3.4) k/cumm Absolute Monocytes (0.11-0.7) k/cumm Absolute Eosinophils (0.0-0.7) k/cumm Absolute Basophils (0.0-0.2) k/cumm Sodium (136-145) mmol/L Potassium (3.5-5.1) mmol/L Chloride (98-107) mmol/L Carbon Dioxide (21.0-32.0) mmol/L Anion Gap (3-11) mmol/L BUN (7-18) mg/dL Creatinine (0.55-1.02) mg/dL Estimated GFR/1.73 m2 (mL/min/1.73m2) Glucose (70-100) mg/dL Calcium (8.5-10.1) mg/dL Total Bilirubin (0.2-1.0) mg/dL AST (15-37) U/L ALT (14-59) U/L Alkaline Phosphatase (46-116) U/L Total Protein (6.4-8.2) g/dL Albumin (3.4-5.0) g/dL Lipase (73-393) U/L Serum HCG, Qual Negative Urine Color (Yellow) Urine Clarity (Clear) Urine pH (5-8) Ur Specific [place] (1.005-1.025) Urine Protein (Negative) mg/dL Urine Ketones (Negative) mg/dL Urine Blood (Negative) Urine Nitrite (Negative) Urine Bilirubin (Negative) Urine Urobilinogen (Up TO 0.2) EU/dL Ur Leukocyte Esterase (Negative) Urine Glucose (Negative) mg/dL POC- Test(urine) Negative
== END 2019-03-04 11:48 | disposition left against medical advice (07) ==
PROVIDERS: Emergency Provider Physician Assistant; PCP Family Medicine
DX: R10.30 Lower abdominal pain, unspecified (principal); R11.0 Nausea; M54.5 Low back pain
CPT/HCPCS: 36415; 80053; 81025; 83690; 99283; 81003; 84703; 85025; 87086

== ENCOUNTER 2019-03-04 18:59 | Emergency (ER) | payer SELFPAY ==
[2019-03-04 19:02] VITALS: BP 129/88; PULSE 81; RESP 18; TEMP 36.7; O2SAT 99
--- NOTE | 2019-03-04 19:25 | W.ED.GENAD ---
Discharge Plan Disposition Patient Disposition: HOME Condition: Good Discharge Details Chief Complaint: Abd Prob Clinical Impression: Abdominal pain Primary Care Provider: Corinne Marquez ED Provider: Gigi Grissom Home Meds and New Rx's Prescriptions: New ibuprofen 600 mg tablet 600 mg PO Q8H PRN (Reason: pain) Qty: 20 RF: 0 Discharge Instructions Instructions: Abdominal Pain (ED) Additional Instructions: Labs and CT scan were essentially normal today. No sign of urinary infection. Will try ibuprofen for discomfort. 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 Return to ED if you develop high fever, vomiting, new or worsening pain. Medical Decision Making <Rowdy Gabriel MD - Last Filed: 03/04/19 19:41> 28-year-old female who was seen earlier in the day 4 days of intermittent episodes of lower abdominal pain that radiates to her back. She underwent laboratory testing including a CBC, chemistries and urinalysis that was unremarkable including normal lipase, unremarkable CBC, negative urinalysis, negative test. She left prior to completion of the exam. Now returns for reevaluation. She is afebrile and well-appearing, she does have left lower quadrant tenderness on exam. Differential evidence includes colitis, diverticulitis. Reviewed previous laboratories from today which reveal a white blood cell count of 5, lipase 95, unremarkable LFTs. We will proceed with CT imaging. Case to be signed out to Dr. Grissom change of shift pending imaging and reevaluation Lab Data Lab results reviewed: Yes I reviewed the patient's lab results. <Gigi Grissom MD - Last Filed: 03/04/19 22:30> Patient signed out to me pending results of CT scan. She had presented earlier in the day with lower abdominal/back pain for a week. Labs and urine were negative. test negative. She had to leave but came back tonight for continued pain and CT scan ordered. CT scan of the abdomen/pelvis is unremarkable. She is noted to have a 2 mm stone within the right kidney otherwise essentially normal CT scan. In speaking with the patient, she states it feels somewhat like menstrual cramps but does always resolve on the first day of her period. Which started almost a week ago when the pain started. However, the pain continues. Her bleeding is almost complete. We will have her use Motrin for the next few days and follow-up with [facility]. Return to ED for fever, vomiting, significantly worse or new pain. Medical Records Medical records reviewed: Yes I reviewed the patient's medical records. Lab Data Lab results reviewed: Yes I reviewed the patient's lab results. HPI <Rowdy Gabriel MD - Last Filed: 03/04/19 19:41> General Mode of arrival: ambulatory. Date/Time Provider Initiated Documentation: 03/04/19 19:05. Limitations to Documentation: no limitations. Information obtained by: patient. History of Present Illness 28 year old F presents to the emergency department with the chief complaint of Lower abdominal pain, seen earlier in the day and left prior to completion , described as moderate, and is localized to the abdomen and left. Patient reports radiation to back. Patient started experiencing this day(s) and it has been intermittent. No relieving factors improve symptom(s), No exacerbating factors reported . Patient notes loss of appetite. Patient did receive the following treatments prior to arrival, none Related Data Home Medications Medication Instructions Recorded Confirmed ibuprofen 600 mg PO Q8H PRN #20 tab 03/04/19 Previous Rx's Medication Instructions Recorded ibuprofen 600 mg PO Q8H PRN #20 tab 03/04/19 Allergies Allergy/AdvReac Type Severity Reaction Status Date / Time No Known Allergies Allergy Unverified 03/04/19 19:08 General Stated Complaint: Abd Prob BALDEMAR: 3 Review of Systems <Rowdy Gabriel MD - Last Filed: 03/04/19 19:41> Review of Systems Narrative: 6 systems reviewed and otherwise negative PFSH <Rowdy Gabriel MD - Last Filed: 03/04/19 19:41> Social History Smoking/Tobacco Use Status: Current every day Tobacco Type: cigarettes Drug use: Never Substance use type: does not use Do you feel safe at home: Yes Do you feel safe in your relationship?: Yes Exam <Rowdy Gabriel MD - Last Filed: 03/04/19 19:41> Narrative Exam Narrative: GEN: awake, alert, oriented 3. Pleasant, well groomed, interactive. HEAD: Normocephalic, atraumatic ENT: Mucous membranes moist, oropharynx unremarkable, External ear exam unremarkable EYES: PERRL, EOMI NECK: Full ROM, no ANTHONY, no menigismus CHEST/RESP: Nontender, clear to auscultation bilateral, no wheeze/rhonchi/rales CARDIOVASCULAR: RRR, no murmur, rub jono. 2+ Rad pulse bilateral ABDOMEN: Soft, tender left mid to lower abdomen, no mass. +Bowel sounds EXT: Full ROM, no edema, no rash Neuro: Grossly normal neurologic exam, conversant, interactive. Psych: Speech fluent, thoughts congruent, affect normal Course <Rowdy Gabriel MD - Last Filed: 03/04/19 19:41> Vital Signs Vital signs: Vital Signs Temperature 36.7 C 03/04/19 19:02 Pulse 81 03/04/19 19:02 Respiratory Rate 18 03/04/19 19:02 Blood Pressure 129/88 03/04/19 19:02 Pulse Oximetry 99 03/04/19 19:02 Temperature 36.7 C 03/04/19 19:02 Temperature Source Skin 03/04/19 19:02 Pulse 81 03/04/19 19:02 Respiratory Rate 18 03/04/19 19:02 Respiratory Effort Non-Labored 03/04/19 19:08 Blood Pressure 129/88 03/04/19 19:02 Blood Pressure Position Sitting 03/04/19 19:02 Pulse Oximetry 99 03/04/19 19:02 Oxygen Delivery Method Room Air 03/04/19 19:02 Oxygen Flow Rate 0 03/04/19 19:02 Pain Level 6 03/04/19 19:02 Sign Out <Rowdy Gabriel MD - Last Filed: 03/04/19 19:41> Sign Out Data: Sign Out Comment: followup ct, re-eval Last updated by Rowdy Gabriel MD at 03/04/19 20:06
[2019-03-04] MEDS: Ketorolac 15 MG/ML VIAL IVP (20:05)
[2019-03-04] MEDS: Normal Saline 1,000 ML 150 ML IV (20:06)
[2019-03-04] MEDS: Breeza Beverage 473 ML BTL PO ×2 (21:35)
--- NOTE | 2019-03-04 21:36 | DI.CT_ITS ---
EXAM: CT ABDOMEN PELVIS W CLINICAL HISTORY: LLQ abd pain. TECHNIQUE: The examination was carried out according to usual protocol with oral and intravenous con trast. COMPARISON: No exams were available for comparison FINDINGS: The liver is unremarkable. The gallbladder, pancreas and spleen are unremarkable. The adrenals are i ntact. A 2 mm nonobstructing right renal calculus is identified. There is no evidence of bowel obst ruction. There are regions of mild colonic wall thickening which probably are on the basis of lack of distention. There is no evidence of an acute appendix. There is no evidence of free air or fluid in the intraperitoneal space. No vascular abnormality is seen. There is no evidence of lymphadenopathy . The bladder is intact. The reproductive organs as visualized appear intact. No acute bony abnormality is seen. The soft tissues are unremarkable. IMPRESSION: No acute abnormality is evident.
[2019-03-04] MEDS: Omnipaque 350 MG/ML 100 ML BTL IJ (21:39)
[2019-03-04] MEDS: Omnipaque 350 MG/ML 50 ML BTL IJ (21:40)
--- NOTE | 2019-03-04 22:11 | DI.VRAD_ITS ---
PROCEDURE INFORMATION: Exam: CT Abdomen and Pelvis With Contrast Exam date and time: 03/04/2019 9:32 PM Clinical history: 28 years old, female; Abdominal pain; Localized; Left lower quadrant (llq) TECHNIQUE: Imaging protocol: Computed tomography of the abdomen and pelvis with intravenous contrast. Radiation optimization: All CT scans at this facility use at least one of these dose optimization techniques: automated exposure control; mA and/or kV adjustment per patient size (includes targeted exams where dose is matched to clinical indication); or iterative reconstruction. Contrast material: OMNIPAQUE 350; Contrast volume: 87 ml; Contrast route: IV; COMPARISON: US PELVIS TRANSVAG 06/10/2012 6:57 PM FINDINGS: Liver: No suspicious lesions. Gallbladder and bile ducts: No acute or concerning findings. Pancreas: Unremarkable. No ductal dilation. Spleen: No suspicious lesions. Adrenals: No suspicious nodule. Kidneys and ureters: 2 mm nonobstructing right renal calculus. Stomach and bowel: No inflammed or dilated loops. Areas of mild colonic wall thickening likely represents lack of distention. Appendix: No evidence of appendicitis. Intraperitoneal space: No free air. No significant fluid collection. Vasculature: Unremarkable. No acute findings Lymph nodes: Unremarkable. Bladder: Unremarkable as visualized. Reproductive: Unremarkable as visualized. Bones/joints: Unremarkable. No acute fracture. Soft tissues: Unremarkable. IMPRESSION: No acute findings. Dictated and Authenticated by: Tolu Marie MD. Ordering:MANE Reno MD
== END 2019-03-04 22:40 | disposition home or self-care (01) ==
PROVIDERS: Emergency Provider Emergency Medicine; PCP Family Medicine
DX: R10.32 Left lower quadrant pain (principal)
CPT/HCPCS: 96361; 96374; 99285; 74177; 99284; J1885; J3490; Q9967

== ENCOUNTER 2019-03-05 15:33 | Outpatient (CLI) | payer SELFPAY ==
[2019-03-08 11:32] LABS: HBs Antibody, Quant 527.3 mIU/mL; Hepatitis B Surface Ab Positive
[2019-03-08 13:03] LABS: Varicella IgG Antibody Positive
[2019-03-10 11:38] LABS: TB Interpretation Negative (NEGAT)
== END 2019-03-05 15:53 ==
PROVIDERS: PCP Family Medicine; Visit Provider Nurse Practitioner Family
DX: Z01.84 Encounter for antibody response examination (principal); Z11.59 Encounter for screening for other viral diseases
CPT/HCPCS: 36415; 86706; 86787; 86480

== ENCOUNTER 2020-05-24 13:52 | Outpatient (REF) | payer MEDICAID, SELFPAY ==
[2020-05-29 12:44] LABS: IgA 158 mg/dL (85-499); Interpretation (See Note); Tissue Transglutaminase IgA <1.2 U/mL (<4.0)
== END 2020-05-24 14:12 ==
LOC: NCHCN 13:52
PROVIDERS: PCP Family Medicine; Visit Provider Family Medicine
DX: R19.7 Diarrhea, unspecified (principal)
CPT/HCPCS: 82784; 83516

== ENCOUNTER 2020-06-25 12:45 | Day surgery (SDC) | payer MEDICAID, SELFPAY ==
[2020-06-25] VITALS (17 sets, daily range): BP systolic 104–151; BP diastolic 42–90; PULSE 62–95; RESP 12–18; TEMP 36.6–37.3; O2SAT 97–100
[2020-06-25 13:21] LABS: Bilirubin Small (Negative); Blood Large (Negative); Clarity Cloudy (Clear); Glucose Negative (Negative); Ketones Negative (Negative); Leukocyte Esterase Negative (Negative); Nitrite Negative (Negative); Specific Gravity >= 1.030 (1.005-1.025); Urobilinogen 0.2 EU/dL (Up TO 0.2); pH 5.5 (5-8)
[2020-06-25 13:23] LABS: Abs Immature Grans 0.03 10^3/uL (0.0-0.06); Absolute Basophil Count 0.06 10^3/uL (0.0-0.2); Absolute Lymphocyte Count 2.39 10^3/uL (1.2-3.4); Absolute Monocyte Count 0.63 10^3/uL (0.1-0.8); Absolute Neutrophil Count 7.15 10^3/uL (1.2-6.7); Basophils % 0.6; Eosinophils % 2.8; HCT 41.6 % (36.0-46.0); HGB 14.3 g/dL (11.2-15.7); Immature Grans % 0.3; Lymphocytes % 22.6; MCH 30.2 pg (27.0-33.0); MCHC 34.4 % (32.0-36.0); MCV 87.9 fL (80-95); MPV 11.7 fL (8.0-11.0); Neutrophils % 67.7; Nucleated RBC 0 %; Platelet Count 232 10^3/uL (130-400); RBC 4.73 10^6/uL (3.93-5.22); RDW 12.6 % (11.7-14.6); RDW-SD 40.4 fL; WBC 10.56 10^3/uL (4.4-10.8)
[2020-06-25 13:28] LABS: Bacteria Few HPF (Negative); C & S Indicated? No/Sq. Contamination; Casts Negative LPF (Negative); Crystals Negative HPF (Negative); Epithelial Cells Many HPF (Negative); Mucus Negative (Negative); RBC >50 HPF (0-2); WBC 0-2 HPF (0-5)
--- NOTE | 2020-06-25 13:28 | W.ED.GENAD ---
Discharge Plan Disposition Patient Disposition: OTHER Condition: Stable Discharge Details Clinical Impression: Ruptured ectopic Primary Care Provider: Corinne Marquez ED Provider: Anusha Staples Discharge Data Discharge Date/Time-TO BE ENTERED AT DEPARTURE: 06/25/20 17:50 Medical Decision Making 30-year-old female G2, P1 with a report of last menstrual period 2 weeks ago presents with diarrhea, lower back and abdominal pain and vaginal bleeding since this morning. Urine test positive on arrival but she was unaware of this. She is hemodynamically stable and tearful. Her abdomen is soft but tender in the suprapubic region. Differential diagnosis includes miscarriage, vaginal bleeding in early , or possible ectopic . Will obtain screening labs and ultrasound. Radiology is available to come for ultrasound. Labs reviewed. White blood cell count 10. Hemoglobin 14. Normal coagulation studies. Beta hCG quant 175. Urinalysis notes blood but no evidence of infection. Ultrasound suspicious for right sided ruptured ectopic . Case discussed with Dr. Murcia who will come to the ED to take patient to the operating room. Results discussed with patient. Her pain is controlled with IV Tylenol. now at bedside. She is hemodynamically stable. Medical Records Medical records reviewed: Yes I reviewed the patient's medical records. Imaging Data Radiologic Study: Radiologist's impression: US First Trimester, Transabdominal Exam date and time: 06/25/2020 3:28 PM Age: 30 years old Clinical indication: complicated by abdominal or pelvic pain; Lower; First trimester; Gestational age or lmp: Approximately 1-3 weeks based on b hcg; ; Patient HX: Lmp = 2 weeks ago. Sudden onset severe bleeding and pelvic pain this morning. ; Additional info: No iup noted. TECHNIQUE: Imaging protocol: Real-time transabdominal obstetrical ultrasound of the maternal pelvis and a first trimester , less than 14 weeks 0 days, with image documentation. COMPARISON: CT ABDOMEN PELVIS W 03/04/2019 9:29 PM FINDINGS: GESTATION: Gestation: No intrauterine gestation identified. MATERNAL: Uterus: Endometrial thickness 9 mm. Uterus measures 79 x 34 by 48 mm. Cervix: Unremarkable. Right adnexa: Heterogeneous soft tissue in right adnexa with peripheral vascularity and right adnexal fluid. Cystic structure in the right adnexa measuring 13 x 12 x 10 mm. Adjacent solid structure measuring 18 x 17 x 13 mm. Peripheral vascularity the structures. Right ovary measures 23 by 26 x 20 mm. Multiple follicles in the right ovary. Left adnexa: Left ovary measures 19 by 27 x 20 mm. Multiple follicles in the left ovary. Intraperitoneal space: Moderate amount of fluid in the pelvis. Right kidney: Right kidney appears normal. No evidence of hydronephrosis. Right kidney measures 8.9 cm in length. Left kidney: Left kidney appears normal. No evidence of hydronephrosis. Left kidney measures 9.8 cm in length. IMPRESSION: 1. Findings suspicious for possible ruptured tubal ectopic in the right adnexa. 2. Multiple follicles in both ovaries, too numerous to count. This can be seen in polycystic ovarian disease. Recommend correlation with symptomatology. 3. Moderate amount of free fluid in the pelvis. Lab Data Lab results reviewed: Yes I reviewed the patient's lab results. Labs: Laboratory Tests Range/Units 06/25/20 06/25/20 06/25/20 13:00 13:15 13:15 WBC (4.4-10.8) 10^3/uL 10.56 RBC (3.93-5.22) 10^6/uL 4.73 Hgb (11.2-15.7) g/dL 14.3 Hct (36.0-46.0) % 41.6 MCV (80-95) fL 87.9 MCH (27.0-33.0) pg 30.2 MCHC (32.0-36.0) % 34.4 RDW (11.7-14.6) % 12.6 Plt Count (130-400) 10^3/uL 232 MPV (8.0-11.0) fL 11.7 H Immature Gran % 0.3 Neutrophils % 67.7 Lymphocytes % 22.6 Monocytes % 6.0 Eosinophils % 2.8 Basophils % 0.6 Nucleated RBC % % 0 Absolute Neutrophils (1.2-6.7) 10^3/uL 7.15 H Absolute Lymphocytes (1.2-3.4) 10^3/uL 2.39 Absolute Monocytes (0.1-0.8) 10^3/uL 0.63 Absolute Eosinophils (0.0-0.7) 10^3/uL 0.30 Absolute Basophils (0.0-0.2) 10^3/uL 0.06 PT (9.3-11.0) sec INR (0.9-1.1) APTT (21.0-27.5) sec Sodium (136-145) mmol/L 138 Potassium (3.5-5.1) mmol/L 3.5 Chloride (98-107) mmol/L 104 Carbon Dioxide (21.0-32.0) mmol/L 24.5 Anion Gap (3-11) mmol/L 9.5 BUN (7-18) mg/dL 8 Creatinine (0.55-1.02) mg/dL 0.86 Estimated GFR/1.73 m2 (mL/min/1.73m2) >= 60.00 Glucose (74-106) mg/dL 104 Calcium (8.5-10.1) mg/dL 9.3 Total Bilirubin (0.2-1.0) mg/dL 0.9 AST (15-37) U/L 12 L ALT (14-59) U/L 17 Alkaline Phosphatase (46-116) U/L 59 Total Protein (6.4-8.2) g/dL 7.7 Albumin (3.4-5.0) g/dL 3.9 Beta HCG, Quant (1-3) mIU/mL Urine Color (Yellow) Yellow Urine Clarity (Clear) Cloudy Urine pH (5-8) 5.5 Ur Specific [place] (1.005-1.025) >= 1.030 H Urine Protein (Negative) mg/dL Trace H Urine Ketones (Negative) mg/dL Negative Urine Blood (Negative) Large H Urine Nitrite (Negative) Negative Urine Bilirubin (Negative) Small H Urine Urobilinogen (Up TO 0.2) EU/dL 0.2 Ur Leukocyte Esterase (Negative) Negative Urine RBC (0-2) HPF >50 H Urine WBC (0-5) HPF 0-2 Ur Epithelial Cells (Negative) HPF Many Urine Crystals (Negative) HPF Negative Urine Bacteria (Negative) HPF Few Urine Casts (Negative) LPF Negative Urine Mucus (Negative) Negative Ur Culture Indicated? No/sq. contamination Urine Glucose (Negative) mg/dL Negative Patient ABO/Rh Range/Units 06/25/20 06/25/20 06/25/20 13:15 13:15 13:35 WBC (4.4-10.8) 10^3/uL RBC (3.93-5.22) 10^6/uL Hgb (11.2-15.7) g/dL Hct (36.0-46.0) % MCV (80-95) fL MCH (27.0-33.0) pg MCHC (32.0-36.0) % RDW (11.7-14.6) % Plt Count (130-400) 10^3/uL MPV (8.0-11.0) fL Immature Gran % Neutrophils % Lymphocytes % Monocytes % Eosinophils % Basophils % Nucleated RBC % % Absolute Neutrophils (1.2-6.7) 10^3/uL Absolute Lymphocytes (1.2-3.4) 10^3/uL Absolute Monocytes (0.1-0.8) 10^3/uL Absolute Eosinophils (0.0-0.7) 10^3/uL Absolute Basophils (0.0-0.2) 10^3/uL PT (9.3-11.0) sec 10.4 INR (0.9-1.1) 1.0 APTT (21.0-27.5) sec 23.6 Sodium (136-145) mmol/L Potassium (3.5-5.1) mmol/L Chloride (98-107) mmol/L Carbon Dioxide (21.0-32.0) mmol/L Anion Gap (3-11) mmol/L BUN (7-18) mg/dL Creatinine (0.55-1.02) mg/dL Estimated GFR/1.73 m2 (mL/min/1.73m2) Glucose (74-106) mg/dL Calcium (8.5-10.1) mg/dL Total Bilirubin (0.2-1.0) mg/dL AST (15-37) U/L ALT (14-59) U/L Alkaline Phosphatase (46-116) U/L Total Protein (6.4-8.2) g/dL Albumin (3.4-5.0) g/dL Beta HCG, Quant (1-3) mIU/mL 175 H Urine Color (Yellow) Urine Clarity (Clear) Urine pH (5-8) Ur Specific [place] (1.005-1.025) Urine Protein (Negative) mg/dL Urine Ketones (Negative) mg/dL Urine Blood (Negative) Urine Nitrite (Negative) Urine Bilirubin (Negative) Urine Urobilinogen (Up TO 0.2) EU/dL Ur Leukocyte Esterase (Negative) Urine RBC (0-2) HPF Urine WBC (0-5) HPF Ur Epithelial Cells (Negative) HPF Urine Crystals (Negative) HPF Urine Bacteria (Negative) HPF Urine Casts (Negative) LPF Urine Mucus (Negative) Ur Culture Indicated? Urine Glucose (Negative) mg/dL Patient ABO/Rh A Positive HPI General Mode of arrival: ambulatory. Date/Time Provider Initiated Documentation: 06/25/20 12:48. Limitations to Documentation: no limitations. Information obtained by: patient. HPI Narrative: Patient is a 30-year-old female G2, P1 presents for diarrhea, vaginal bleeding and lower back pain and abdominal pain since morning. Patient states she has a gluten intolerance and ate a bagel yesterday. She states she awoke with lower back pain and had a few episodes of diarrhea. She states she then coughed at home and had a large amount of vaginal bleeding. She states she is unsure if there were clots or tissue. She states upon using the back. 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 BALDEMAR: 3 Review of Systems All systems reviewed & are unremarkable except as noted in HPI and below Constitutional Constitutional: Reports as per HPI, Denies chills and Denies fever(s) Eyes Eyes: Denies blurry vision ENT Ears, Nose, Mouth, and Throat: Denies dizziness, Denies sore throat and Denies throat swelling Cardiovascular Cardiovascular: Denies chest pain and Denies dyspnea Respiratory Respiratory: Denies cough and Denies dyspnea Gastrointestinal Gastrointestinal: Denies abdominal pain, Denies diarrhea and Denies vomiting Genitourinary Genitourinary: Denies hematuria and Denies dysuria Musculoskeletal Musculoskeletal: Denies back pain and Denies numbness Integumentary/Breasts Skin/Breast: Denies lesions and Denies rash Neurologic Neurologic: Denies dizziness, Denies localized weakness and Denies numbness Allergic/Immunologic Allergic/Immunologic: Denies throat swelling [facility] Medical History (Updated 06/25/20 @ 20:36 by Velma Murcia MD) Ectopic of right ovary No significant past medical history Surgical History (Updated 06/25/20 @ 20:36 by Velma Murcia MD) H/O unilateral salpingectomy 06/25/2020. Right salpingectomy right unruptured ectopic History of adenoidectomy History of dental surgery Social History (Updated 06/25/20 @ 17:03 by Velma Murcia MD) Smoking/Tobacco Use Status: Current every day Tobacco Type: cigarettes Smoking risk assessment performed?: Yes Drug use: Never Substance use type: does not use Household members: significant other and other Details: Carlos and son Marcelo Number of Children: 1 current occupation: [employer] Sexually active: Yes Do you feel safe at home: Yes Do you feel safe in your relationship?: Yes Exam Const General: cooperative, healthy appearing, no acute distress and other (tearful) Orientation: alert, awake and oriented x3 HENMT Head: normal to inspection Face and sinus: normal facial exam Eyes General: appearance normal, both eyes and all related structures EOM: EOM intact bilaterally Neck Neck: normal visual inspection and No submandibular swelling Lymphatic: no lymphadenopathy noted Chest Chest: normal inspection of the chest and no tenderness Resp Effort & Inspection: normal respiratory effort and able to speak in complete sentences Auscultation: clear to auscultation bilaterally Cardio Rate: regular rate Rhythm: regular rhythm GI Inspection: normal to inspection Palpation: soft, not firm, not rigid and nontender Auscultation: normal bowel sounds Back/Spine/Pelvis Thoracic/Lumbar Spine: thoracic and lumbar spine normal to inspection Pelvis: no pain with anterior-posterior compression Skin General skin exam: no rashes or lesions noted Neuro General: patient alert, patient awake and patient oriented x3 Cognition: normal cognition Speech: speech normal Motor: muscle tone normal throughout Sensory Exam: no sensory deficits noted Extrem General: normal to inspection, full ROM, capillary refill normal, no calf tenderness bilaterally and no edema Psych Appearance: grossly normal Mental Status: mental status grossly normal Speech and Movement: speech and movement normal Affect: normal affect Course Vital Signs Vital signs: Vital Signs Temperature 99.1 F 06/25/20 12:51 Pulse 95 H 06/25/20 12:51 Respiratory Rate 16 06/25/20 12:51 Blood Pressure 151/87 H 06/25/20 12:51 Pulse Oximetry 99 06/25/20 12:51 Temperature 99.1 F 06/25/20 12:51 Temperature Source Skin 06/25/20 12:51 Pulse 95 H 06/25/20 12:51 Respiratory Rate 16 06/25/20 12:51 Respiratory Effort Non-Labored 06/25/20 12:51 Blood Pressure 151/87 H 06/25/20 12:51 Blood Pressure Position Sitting 06/25/20 12:51 Pulse Oximetry 99 06/25/20 12:51 Pain Level 8 06/25/20 12:51 Lab/Test Results Lab/Test Results: Laboratory Tests Range/Units 06/25/20 06/25/20 13:00 13:15 WBC (4.4-10.8) 10^3/uL 10.56 RBC (3.93-5.22) 10^6/uL 4.73 Hgb (11.2-15.7) g/dL 14.3 Hct (36.0-46.0) % 41.6 MCV (80-95) fL 87.9 MCH (27.0-33.0) pg 30.2 MCHC (32.0-36.0) % 34.4 RDW (11.7-14.6) % 12.6 Plt Count (130-400) 10^3/uL 232 MPV (8.0-11.0) fL 11.7 H Immature Gran % 0.3 Neutrophils % 67.7 Lymphocytes % 22.6 Monocytes % 6.0 Eosinophils % 2.8 Basophils % 0.6 Nucleated RBC % % 0 Absolute Neutrophils (1.2-6.7) 10^3/uL 7.15 H Absolute Lymphocytes (1.2-3.4) 10^3/uL 2.39 Absolute Monocytes (0.1-0.8) 10^3/uL 0.63 Absolute Eosinophils (0.0-0.7) 10^3/uL 0.30 Absolute Basophils (0.0-0.2) 10^3/uL 0.06 Urine Color (Yellow) Yellow Urine Clarity (Clear) Cloudy Urine pH (5-8) 5.5 Ur Specific [place] (1.005-1.025) >= 1.030 H Urine Protein (Negative) mg/dL Trace H Urine Ketones (Negative) mg/dL Negative Urine Blood (Negative) Large H Urine Nitrite (Negative) Negative Urine Bilirubin (Negative) Small H Urine Urobilinogen (Up TO 0.2) EU/dL 0.2 Ur Leukocyte Esterase (Negative) Negative Urine Glucose (Negative) mg/dL Negative POC- Test(urine) Positive
[2020-06-25 13:36] LABS: ALT 17 U/L (14-59); AST 12 U/L (15-37); Albumin 3.9 g/dL (3.4-5.0); Alkaline Phosphatase 59 U/L (46-116); Anion Gap 9.5 mmol/L (3-11); BUN 8 mg/dL (7-18); Bilirubin, Total 0.9 mg/dL (0.2-1.0); CO2 24.5 mmol/L (21.0-32.0); CREATININE 0.86 mg/dL (0.55-1.02); Calcium 9.3 mg/dL (8.5-10.1); Chloride 104 mmol/L (98-107); Glucose 104 mg/dL (74-106); Potassium 3.5 mmol/L (3.5-5.1); Sodium 138 mmol/L (136-145); Total Protein 7.7 g/dL (6.4-8.2)
--- NOTE | 2020-06-25 13:41 | DI.US_ITS ---
Right adnexal fluid EXAM: US OB 1ST TRIMESTER CLINICAL HISTORY: pain, bleeding, r/o ectopic . TECHNIQUE: First trimester obstetrical ultrasound was performed. COMPARISON: US PELVIS TRANSVAG from 06/10/2012 FINDINGS: Both transabdominal and transvaginal pelvic ultrasound examinations were performed. The uterus is anteverted, measuring 8 x 3.5 x 4.8 centimeters. There are no uterine fibroids. There is no evidence of intrauterine gestational sac. Endometrial thickness is 9 millimeters. Multiple follicles are noted in both ovaries. However, in the right adnexa there is an 18 x 17 x 13 millimeters structure adjacent to the ovary which exhibits both solid and cystic components. Possibl e ectopic . There is right adnexal fluid evident. IMPRESSION:: 1. No evidence of intrauterine gestation. 2. Multiple follicles in both the ovaries. However, there is also an extra ovarian structure on the right side measuring 18 x 17 x 13 millimeters exhibiting both solid and cystic components. There is also fluid in the ipsilateral adnexa. Findings are suspicious for ectopic in the absence of an intrauterine gestation. This study 1st read by virtual Radiology DATA REPOSITORY: . There is noted.
[2020-06-25 13:44] LABS: PTT Activated 23.6 sec (21.0-27.5); Prothrombin Time 10.4 sec (9.3-11.0)
[2020-06-25 13:52] LABS: HCG Quant, Pregnancy 175 mIU/mL (1-3)
[2020-06-25] MEDS: ACETAMINOPHEN 1,000 MG/100 ML BTL 400 MG IVPB (15:37)
--- NOTE | 2020-06-25 16:00 | DI.VRAD_ITS ---
PROCEDURE INFORMATION: Exam: US First Trimester, Transabdominal Exam date and time: 06/25/2020 3:28 PM Age: 30 years old Clinical indication: complicated by abdominal or pelvic pain; Lower; First trimester; Gestational age or lmp: Approximately 1-3 weeks based on b hcg; ; Patient HX: Lmp = 2 weeks ago. Sudden onset severe bleeding and pelvic pain this morning. ; Additional info: No iup noted. TECHNIQUE: Imaging protocol: Real-time transabdominal obstetrical ultrasound of the maternal pelvis and a first trimester , less than 14 weeks 0 days, with image documentation. COMPARISON: CT ABDOMEN PELVIS W 03/04/2019 9:29 PM FINDINGS: GESTATION: Gestation: No intrauterine gestation identified. MATERNAL: Uterus: Endometrial thickness 9 mm. Uterus measures 79 x 34 by 48 mm. Cervix: Unremarkable. Right adnexa: Heterogeneous soft tissue in right adnexa with peripheral vascularity and right adnexal fluid. Cystic structure in the right adnexa measuring 13 x 12 x 10 mm. Adjacent solid structure measuring 18 x 17 x 13 mm. Peripheral vascularity the structures. Right ovary measures 23 by 26 x 20 mm. Multiple follicles in the right ovary. Left adnexa: Left ovary measures 19 by 27 x 20 mm. Multiple follicles in the left ovary. Intraperitoneal space: Moderate amount of fluid in the pelvis. Right kidney: Right kidney appears normal. No evidence of hydronephrosis. Right kidney measures 8.9 cm in length. Left kidney: Left kidney appears normal. No evidence of hydronephrosis. Left kidney measures 9.8 cm in length. IMPRESSION: 1. Findings suspicious for possible ruptured tubal ectopic in the right adnexa. 2. Multiple follicles in both ovaries, too numerous to count. This can be seen in polycystic ovarian disease. Recommend correlation with symptomatology. 3. Moderate amount of free fluid in the pelvis. THIS REPORT CONTAINS FINDINGS THAT MAY BE CRITICAL TO PATIENT CARE. The findings were verbally communicated via telephone conference with antonio canales at 4:00 PM EST on 06/25/2020. The findings were acknowledged and understood. Dictated and Authenticated by: Kim Alvarez MD. Ordering:CAMACHO Tavares MD
[2020-06-25] MEDS: Normal Saline 1,000 ML 1000 ML IV (16:30)
--- NOTE | 2020-06-25 16:58 | HPE_ITS ---
Date of service: 06/25/20 Time of Service: 16:58 History of Present Illness History of Present Illness Chief Complaint: R ectopic Consults Consult date: 06/25/20 Requesting physician: Anusha Staples Narrative: Pt is a 30yo female with a LMP ~ 2 weeks ago who presented to the [facility] ED earlier today with report of uterine bleeding and pelvic cramping. An hCG performed at ED was positive and a TA pelvic u/s showed evidence of a ruptured ectopic . Review of Systems All systems reviewed & are unremarkable except as noted in HPI and below Gastrointestinal Gastrointestinal: Reports abdominal pain (Generalized), Denies hematochezia, Reports cramping (Yesterday worsening this morning.) and Reports loose stools (Longstanding history. Reports gluten intolerance) Genitourinary Genitourinary: Denies abnormal vaginal bleeding (Irregular menses possibly 2 weeks ago), Reports metrorrhagia (Began bleeding this morning brown and red heavy flow), Reports difficulty conceiving (Not actively contraceptived in 7 years) and Reports pelvic pain Integumentary/Breasts Skin/Breast: Reports system reviewed and no additional complaints, except as documented Psychiatric Psychiatric: Reports system reviewed and no additional complaints, except as documented [facility] Medical History (Updated 06/25/20 @ 17:02 by Velma Murcia MD) No significant past medical history Surgical History (Updated 06/25/20 @ 15:01 by Anusha Staples DO) History of adenoidectomy History of dental surgery Social History (Updated 06/25/20 @ 17:03 by Velma Murcia MD) Smoking/Tobacco Use Status: Current every day Tobacco Type: cigarettes Smoking risk assessment performed?: Yes Drug use: Never Substance use type: does not use Household members: significant other and other Details: Carlos and son Marcelo Number of Children: 1 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 [facility] Sexually active: Yes Do you feel safe at home: Yes Do you feel safe in your relationship?: Yes Meds Home Medications and Allergies Home Medications Medication Instructions Recorded Confirmed Type ibuprofen 600 mg PO Q8H PRN #20 tab 03/04/19 06/25/20 Rx Allergies Allergy/AdvReac Type Severity Reaction Status Date / Time No Known Allergies Allergy Unverified 06/25/20 12:57 Exam Const General: cooperative and no acute distress ([facility] Nutritional Appearance: average body habitus Orientation: alert, awake and oriented x3 Resp Effort & Inspection: normal respiratory effort Auscultation: clear to auscultation bilaterally Cardio Rate: regular rate Rhythm: regular rhythm GI Inspection: normal to inspection Palpation: soft, no hepatosplenomegaly, no guarding, no masses and tender suprapubicly (No tenderness noted in the right or left lower quadrant) Rectal Exam - female: deferred General: deferred Skin General skin exam: no rashes or lesions noted (Tattoos present) Extrem General: normal to inspection and full ROM Psych Appearance: grossly normal Mental Status: mental status grossly normal Speech and Movement: speech and movement normal Mood: congruent mood Affect: normal affect Attitude: cooperative Results Labs Result diagrams: 06/25/20 13:15 06/25/20 13:15 Labs: Laboratory Results - last 24 hr 06/25/20 06/25/20 06/25/20 13:00 13:15 13:15 WBC 10.56 RBC 4.73 Hgb 14.3 Hct 41.6 MCV 87.9 MCH 30.2 MCHC 34.4 RDW 12.6 Plt Count 232 MPV 11.7 H Immature Gran % 0.3 Neutrophils % 67.7 Lymphocytes % 22.6 Monocytes % 6.0 Eosinophils % 2.8 Basophils % 0.6 Nucleated RBC % 0 Absolute Neutrophils 7.15 H Absolute Lymphocytes 2.39 Absolute Monocytes 0.63 Absolute Eosinophils 0.30 Absolute Basophils 0.06 PT INR APTT Sodium 138 Potassium 3.5 Chloride 104 Carbon Dioxide 24.5 Anion Gap 9.5 BUN 8 Creatinine 0.86 Estimated GFR/1.73 m2 >= 60.00 Glucose 104 Calcium 9.3 Total Bilirubin 0.9 AST 12 L ALT 17 Alkaline Phosphatase 59 Total Protein 7.7 Albumin 3.9 Beta HCG, Quant Urine Color Yellow Urine Clarity Cloudy Urine pH 5.5 Ur Specific [place] >= 1.030 H Urine Protein Trace H Urine Ketones Negative Urine Blood Large H Urine Nitrite Negative Urine Bilirubin Small H Urine Urobilinogen 0.2 Ur Leukocyte Esterase Negative Urine RBC >50 H Urine WBC 0-2 Ur Epithelial Cells Many Urine Crystals Negative Urine Bacteria Few Urine Casts Negative Urine Mucus Negative Ur Culture Indicated? No/sq. contamination Urine Glucose Negative Patient ABO/Rh 06/25/20 06/25/2006/25/21 13:15 13:15 13:35 WBC RBC Hgb Hct MCV MCH MCHC RDW Plt Count MPV Immature Gran % Neutrophils % Lymphocytes % Monocytes % Eosinophils % Basophils % Nucleated RBC % Absolute Neutrophils Absolute Lymphocytes Absolute Monocytes Absolute Eosinophils Absolute Basophils PT 10.4 INR 1.0 APTT 23.6 Sodium Potassium Chloride Carbon Dioxide Anion Gap BUN Creatinine Estimated GFR/1.73 m2 Glucose Calcium Total Bilirubin AST ALT Alkaline Phosphatase Total Protein Albumin Beta HCG, Quant 175 H Urine Color Urine Clarity Urine pH Ur Specific [place] Urine Protein Urine Ketones Urine Blood Urine Nitrite Urine Bilirubin Urine Urobilinogen Ur Leukocyte Esterase Urine RBC Urine WBC Ur Epithelial Cells Urine Crystals Urine Bacteria Urine Casts Urine Mucus Ur Culture Indicated? Urine Glucose Patient ABO/Rh A Positive Last Vital Signs Temp 99.1 F 06/25/20 12:51 Pulse 69 06/25/20 14:31 Resp 16 06/25/20 12:51 BP 118/81 06/25/20 14:31 Pulse Ox 98 06/25/20 14:31 COVID-19 Screening Have you, or household traveled for leisure in last 14 days?: No Had IN PERSON contact w/suspected or confirmed C-19 person: No
[2020-06-25] MEDS: Normal Saline 500 ML 30 ML IV (17:56)
[2020-06-25] MEDS: Lactated Ringers 1,000 ML 30 ML IV (17:56)
[2020-06-25] MEDS: Bupivacaine 0.25% Pres-Free 30 ML VIAL (18:25)
--- NOTE | 2020-06-25 19:00 | FALL_PTH ---
PATIENT: Fang Hernandez LOC: [facility] U#:[id number] AGE/SX: 30/F ROOM: RE06/25/[address]: Velma Murcia : 1990 BED: DIS: 06/25/2020 SPEC #: [id number] RECD: 06/26/20 12:36 STATUS: DEB REQ #: [id number] FAVIAN: 06/25/20 19:[address]: Velma Murcia DEPT: Surgical Specimen RECD BY: Vidya Mancini ENTERED: 06/26/20 12:37 SP TYPE: Fall OTHR DR: Corinne Marquez Tissues: 1 - FALLOPIAN TUBE (ECTOPIC) Procedures: GROSS AND MICRO LEVEL 4 Comments: [id number]
--- NOTE | 2020-06-25 19:34 | ROE_ITS ---
Date of service: 06/25/20 Time of Service: 19:34 Operative Note Operative Note DATE OF PROCEDURE: 06/25/20 PRE-OP DIAGNOSIS: R sided ectopic POST-OP DIAGNOSIS: same PROCEDURE: Laparoscopic right salpingectomy and left fallopian tube chromopertubation SURGEON: Velma Murcia CITY DESIGNER: Edie Ha ANESTHESIA: GETA ESTIMATED BLOOD LOSS: 200 PATHOLOGY: other (Intact right fallopian tube to pathology) COMPLICATIONS: None Patient was transported to: PACU Patient's condition: stable Indications: 30-year-old G2, P1 female with LMP approximately 2 weeks ago presented to the emergency department at [facility] earlier in the day complaints of abdominal pain and uterine bleeding. Patient's hCG was 175mIU/ml. Pelvic u/s showed enlarged R fallopian tube and moderate free fluid in the pelvis. Findings: 200 cc of unclotted blood in the anterior and posterior cul-de-sac and along the paracoloic gutters. R fallopian tube enlarged and unruptured in mid- isthmic section. R ovary and L adnexa normal. Brisk spillage of indigo carmine dye from the L fimbria during the chromopertubation. Procedure Description: Patient was taken to the operating room where she was placed in the dorsal supine position and general endotracheal anesthesia was administered. She was then placed in the dorsal lithotomy position in yellowfin stirrups with SCDs in place. After being prepped and draped in the usual sterile fashion A bivalve speculum was placed in the vagina the anterior lip of the cervix was grasped with a single-tooth tenaculum and the cervix dilated and a Matilde uterine manipulator was introduced into the uterus through the cervix, the bulb at the tip of the manipulator inflated and the device left in place. Attention was then turned to the patient's abdomen. The inferior umbilicus was infiltrated with quarter percent Marcaine without epinephrine. A scalpel was then used to make an vertical incision in the vertical fold. A Veres needle was introduced into the abdomen via the umbilical incision and intra-abdominal placement confirmed by a drop in the intra- abdominal pressure. Once a pneumoperitoneum was established a 12 mm Visiport was placed under direct visualization and intra-abdominal placement confirmed by use of the laparoscope. Patient was then placed in Trendelenburg position. At two sites approximately 6 cm diagonally from the umbilical incision the skin was infiltrated with quarter percent Marcaine without epinephrine, incised with a scalpel and two 5 mm lower ports were placed under direct visualization. Suction roll filler was used and to aspirate blood from the cul-de-sac. A LigaSure electrocautery device was used to sequentally clamp, cauterize and incise the right fallopian tube from the right mesosalpinx salpinx. Care was taken to assure the blood supply to the ovary was not interrupted nor the right ureter compromised. An Endo Catch bag was then placed through the 10 mm port and that the right fallopian tube was placed into the Endo Catch bag and delivered through the 12mm umbilical incision without difficulty. The for support was reinserted and the right fallopian tube pedicle was carefully inspected and noted to be hemostatic. The pelvis was copiously irrigated with normal saline and hemostatic. And a dilute solution of indigocarmine was instilled into the uterine cavity through the uterine manipulator and a brisk efflux of the dye was noted from the left fallopian tube fimbria. Both 5 mm ports were removed under direct visualization. Pneumoperitoneum reduced and the 12 mm umbilical port removed. The fascia of the 12 mm umbilical port site was reapproximated with interrupted suture of 0 Vicryl and the skin of all port sites was reapproximated with subcuticular suture of 4-0 Monocryl. The port sites were then sealed with skin glue. The uterine manipulator was removed from the uterus without difficulty. The patient was placed in the dorsal supine position awakened extubated and transported recovery area in stable condition. All sponge lap needle counts were correct x2.
--- NOTE | 2020-06-25 20:33 | DSE_ITS ---
Date of service: 06/25/20 Time of Service: 20:34 DS: Diagnosis Discharge Diagnosis (1) Ectopic of right ovary: Status: Acute (2) H/O unilateral salpingectomy: Status: Acute (3) Secondary female infertility: Status: Acute Discharge Plan Disposition Condition: Stable Discharge Details Reason For Visit: ECTOPIC Attending Provider: Velma Murcia Primary Care Provider: Corinne Marquez [facility] Course Hospital Course: Patient was admitted through emergency department and underwent a LAPAROSCOPY with a right salpingectomy and a left chromopertubation. Final pathology on the right fallopian tube is currently pending. She is observed after the surgery and discharged home. Plan is to have [facility] 2 weeks to discuss the surgical pathology. Patient will take [id number] ibuprofen while at home. She will be given a dose of Percocet with ondansetron prior to discharge. Advised her to remain out of work for approximately 4 days. Home Meds and New Rx's Prescriptions: No Action ibuprofen 600 mg tablet 600 mg PO Q8H PRN (Reason: pain) Qty: 20 RF: 0 Discharge Instructions Stand Alone Forms: Dr. Jefferson's Laparoscopy Activity:: Activity as Tolerated Activity:: Activity as Tolerated Equipment/Supplies:: No Equipment Needed Diet:: As Tolerated DS: Summary Status at Discharge Functional status at discharge: independent ambulation Overall status at discharge: patient is progressing back to baseline Mental Status: mental status grossly normal Speech and Movement: speech and movement normal Mood: congruent mood Affect: normal affect Exam Psych Mental Status: mental status grossly normal Speech and Movement: speech and movement normal Mood: congruent mood Affect: normal affect DS: Data Vitals/I&O Vitals and I&O: Vital Signs Temperature 97.9 F 06/25/20 19:47 Temperature Source Skin 06/25/20 12:51 Pulse 76 06/25/20 19:47 Respiratory Rate 12 06/25/20 19:47 Respiratory Effort Non-Labored 06/25/20 12:51 Blood Pressure 114/90 06/25/20 19:47 Blood Pressure Mean 90 06/25/20 14:31 Blood Pressure Position Sitting 06/25/20 12:51 Pulse Oximetry 98 06/25/20 19:47 Respiratory End-tidal CO2 31 06/25/20 19:32 Oxygen Delivery Method Room Air 06/25/20 19:47 Oxygen Flow Rate 0 06/25/20 19:47 Pain Level 3 06/25/20 19:47 Intake & Output 06/24/20 06/25/20 06/25/20 23:59 11:59 23:59 Intake Total 1999 Output Total 200 / 200 Balance 1800 / 1800 Weight 145 lb Intake: IV 1999 Output: Estimated Blood Loss 200 / 200 Other: Urine Color Yellow Urine Appearance Clear Emesis Description None Data Completed and Pending Labs on day of discharge: Labs from last 24 hours 06/25/20 06/25/20 06/25/20 18:05 17:10 13:35 WBC RBC Hgb Hct MCV MCH MCHC RDW Plt Count MPV Immature Gran % Neutrophils % Lymphocytes % Monocytes % Eosinophils % Basophils % Nucleated RBC % Absolute Neutrophils Absolute Lymphocytes Absolute Monocytes Absolute Eosinophils Absolute Basophils PT INR APTT Sodium Potassium Chloride Carbon Dioxide Anion Gap BUN Creatinine Estimated GFR/1.73 m2 Glucose Calcium Total Bilirubin AST ALT Alkaline Phosphatase Total Protein Albumin Beta HCG, Quant Urine Color Urine Clarity Urine pH Ur Specific [place] Urine Protein Urine Ketones Urine Blood Urine Nitrite Urine Bilirubin Urine Urobilinogen Ur Leukocyte Esterase Urine RBC Urine WBC Ur Epithelial Cells Urine Crystals Urine Bacteria Urine Casts Urine Mucus Ur Culture Indicated? Urine Glucose SARS-CoV-2 (PCR) Pending Nasopharyn COVID-19 PCR Pending Ref Test Perform Site Pending Patient ABO/Rh A Positive A Positive Antibody Screen Negative 06/25/20 06/25/20 06/25/20 13:15 13:15 13:15 WBC 10.56 RBC 4.73 Hgb 14.3 Hct 41.6 MCV 87.9 MCH 30.2 MCHC 34.4 RDW 12.6 Plt Count 232 MPV 11.7 H Immature Gran % 0.3 Neutrophils % 67.7 Lymphocytes % 22.6 Monocytes % 6.0 Eosinophils % 2.8 Basophils % 0.6 Nucleated RBC % 0 Absolute Neutrophils 7.15 H Absolute Lymphocytes 2.39 Absolute Monocytes 0.63 Absolute Eosinophils 0.30 Absolute Basophils 0.06 PT 10.4 INR 1.0 APTT 23.6 Sodium Potassium Chloride Carbon Dioxide Anion Gap BUN Creatinine Estimated GFR/1.73 m2 Glucose Calcium Total Bilirubin AST ALT Alkaline Phosphatase Total Protein Albumin Beta HCG, Quant 175 H Urine Color Urine Clarity Urine pH Ur Specific [place] Urine Protein Urine Ketones Urine Blood Urine Nitrite Urine Bilirubin Urine Urobilinogen Ur Leukocyte Esterase Urine RBC Urine WBC Ur Epithelial Cells Urine Crystals Urine Bacteria Urine Casts Urine Mucus Ur Culture Indicated? Urine Glucose SARS-CoV-2 (PCR) Nasopharyn COVID-19 PCR Ref Test Perform Site Patient ABO/Rh Antibody Screen 06/25/20 06/25/20 13:15 13:00 WBC RBC Hgb Hct MCV MCH MCHC RDW Plt Count MPV Immature Gran % Neutrophils % Lymphocytes % Monocytes % Eosinophils % Basophils % Nucleated RBC % Absolute Neutrophils Absolute Lymphocytes Absolute Monocytes Absolute Eosinophils Absolute Basophils PT INR APTT Sodium 138 Potassium 3.5 Chloride 104 Carbon Dioxide 24.5 Anion Gap 9.5 BUN 8 Creatinine 0.86 Estimated GFR/1.73 m2 >= 60.00 Glucose 104 Calcium 9.3 Total Bilirubin 0.9 AST 12 L ALT 17 Alkaline Phosphatase 59 Total Protein 7.7 Albumin 3.9 Beta HCG, Quant Urine Color Yellow Urine Clarity Cloudy Urine pH 5.5 Ur Specific [place] >= 1.030 H Urine Protein Trace H Urine Ketones Negative Urine Blood Large H Urine Nitrite Negative Urine Bilirubin Small H Urine Urobilinogen 0.2 Ur Leukocyte Esterase Negative Urine RBC >50 H Urine WBC 0-2 Ur Epithelial Cells Many Urine Crystals Negative Urine Bacteria Few Urine Casts Negative Urine Mucus Negative Ur Culture Indicated? No/sq. contamination Urine Glucose Negative SARS-CoV-2 (PCR) Nasopharyn COVID-19 PCR Ref Test Perform Site Patient ABO/Rh Antibody Screen [facility] Medical History (Updated 06/25/20 @ 20:36 by Velma Murcia MD) Ectopic of right ovary No significant past medical history Surgical History (Updated 06/25/20 @ 20:36 by Velma Murcia MD) H/O unilateral salpingectomy 06/25/2020. 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
[2020-06-25] MEDS: Ondansetron 4 MG/2 ML VIAL IVP (21:54)
[2020-06-25] MEDS: Normal Saline Flush 10 ML SYR IVP (21:55)
[2020-06-25] MEDS: oxyCODONE 5 mg/Acetaminophen 325 mg TAB 2 TAB PO ×2 (22:24→22:25)
[2020-06-27 13:21] LABS: COVID-19 RT-PCR UVMMC Result Negative (Negative)
== END 2020-06-25 23:30 | disposition home or self-care (01) ==
LOC: ER 16:17 → SUR 17:50
PROVIDERS: Emergency Provider Physician Assistant; PCP Family Medicine; Visit Provider Obstetrics & Gynecology Gynecology
PROC: (CPT 49320; principal; 2020-06-25 17:10)
DX: O00.101 Right tubal pregnancy without intrauterine pregnancy (principal)
CPT/HCPCS: 59151; 58350; 36415; 80053; 81025; 86850; 86900; 86901; 88305; 96361; 96374; 99221; 99285; U0003; 76801; 81003; 81015; 84702; 85025; 85610; 85730; G0378; J0131; J1100; J1200; J1885; J2001; J2370; J2405

== ENCOUNTER 2020-07-10 14:29 | Outpatient (CLI) | payer MEDICAID, SELFPAY ==
[2020-07-10 15:43] LABS: HCG Quant, Pregnancy < 1 mIU/mL (1-3)
== END 2020-07-10 14:49 ==
PROVIDERS: PCP Family Medicine; Visit Provider Obstetrics & Gynecology Gynecology
DX: O00.201 Right ovarian pregnancy without intrauterine pregnancy (principal); Z90.79 Acquired absence of other genital organ(s)
CPT/HCPCS: 36415; 84702

== ENCOUNTER 2021-03-02 12:56 | Outpatient (CLI) | payer MEDICAID, SELFPAY ==
--- NOTE | 2021-03-20 08:48 | ZIOP_ITS ---
Date of service: 03/20/21 Time of Service: 08:48 14 Day Clinical Product Manager Referring Provider:: Araceli Herring Indications:: Palpitations Note: This is a 14-day monitor ordered for symptoms of palpitations Predominant rhythm was sinus. Average heart rate was 78. Minimum was 45, maximum 142 There were no ventricular dysrhythmias There were very rare atrial premature beats A total of 3 self-limited atrial runs were recorded. The longest lasted 6 beats. These were asymptomatic Patient symptoms corresponded to atrial premature beats
== END 2021-03-02 12:57 | disposition home or self-care (01) ==
LOC: RT 13:00
PROVIDERS: PCP Family Medicine; Visit Provider Nurse Practitioner Family
DX: R00.2 Palpitations (principal)
CPT/HCPCS: 93246

== ENCOUNTER 2021-03-22 15:59 | Outpatient (REF) | payer MEDICAID, SELFPAY ==
--- NOTE | 2021-03-22 11:10 | PAPFT_PTH ---
PATIENT: Fang Hernandez LOC: [facility]#:[id number] AGE/SX: 30/F ROOM: RE03/22/[address]: Araceli Herring : 1990 BED: DIS: 03/22/2021 SPEC #: [id number] RECD: 03/23/21 12:54 STATUS: DEB REAlice #: [id number] FAVIAN: 03/22/21 11:[address]: Araceli Herring DEPT: [facility] Cytology RECD BY: Vidya Mancini ENTERED: 03/23/21 12:55 SP TYPE: PAPFT OTHR DR: Corinne Marquez Tissues: 1 - CX/ENDOCX FOR PAP SMEARS Procedures: PAP THIN PREP/UVM Screening Comments: [id number] (CHLAMYDIA/GC)
[2021-03-26 16:15] LABS: Chlamydia Result Negative (Negative); GC Result Negative (Negative)
== END 2021-03-22 16:00 | disposition home or self-care (01) ==
LOC: NCHCN 15:59
PROVIDERS: PCP Family Medicine; Visit Provider Nurse Practitioner Family
DX: Z12.4 Encounter for screening for malignant neoplasm of cervix (principal); Z01.419 Encounter for gynecological examination (general) (routine) without abnormal findings; Z11.3 Encounter for screening for infections with a predominantly sexual mode of transmission
CPT/HCPCS: 87491; 87591; 88142

== ENCOUNTER 2021-03-29 14:35 | Outpatient (CLI) | payer MEDICAID, SELFPAY ==
--- NOTE | 2021-03-29 10:30 | DI.RAD_ITS ---
Exam(s) XR ANKLE LT COMPLETE EXAM: XR ANKLE LT COMPLETE CLINICAL HISTORY: L ankle pain TECHNIQUE: COMPARISON: CR RIGHT FOOT COMPLETE from 10/03/2012 CR RIGHT FOOT COMPLETE from 10/03/2012 CR LEFT ANKLE COMPLETE from 06/06/2015 CR LEFT ANKLE COMPLETE from 06/06/2015 FINDINGS: Three views were obtained. The ankle mortise appears well maintained. There is well corticated osse ous body adjacent to the medial malleolus which was not present on prior examination of May 2015 , this may represent a remote injury. No acute bony abnormality seen. No other significant findings . IMPRESSION: RADIATION DOSE DELIVERED: Total DLP
== END 2021-03-29 14:36 | disposition home or self-care (01) ==
LOC: DIORS 14:35
PROVIDERS: PCP Family Medicine; Referring Provider Family Medicine; Visit Provider Physician Assistant
DX: M25.572 Pain in left ankle and joints of left foot (principal); M85.872 Other specified disorders of bone density and structure, left ankle and foot
CPT/HCPCS: 73610

== ENCOUNTER 2021-04-09 00:24 | Outpatient (CLI) | payer MEDICAID, SELFPAY ==
--- NOTE | 2021-04-09 08:00 | DI.MRI_ITS ---
Exam(s) MR LOWER JOINT LT WO EXAM: MR LOWER JOINT LT WO CLINICAL HISTORY: LT ANKLE pain, instability,M25.572 TECHNIQUE: Multiplanar multisequence MRI of the left ankle was performed. COMPARISON: CR XR ANKLE LT COMPLETE from 03/29/2021 FINDINGS: SKIN AND SUBCUTANEOUS TISSUE: No evidence of ulcer nor tract. MARROW: There is no evidence of stress fracture. No osteochondral defect in the talar dome nor degen erative subarticular cysts. No abnormal intraosseous signal in the medial and lateral malleoli nor i n the posterior malleolus. ARTICULATIONS: No prominent joint effusion or obvious degenerative changes. No erosions. No evidenc e of para-articular ganglion cysts. SINUS TARSI: Unremarkable. Normal appearing interosseous ligament. No loss of normal fat signal. N o evidence of sinus tarsi ganglion cyst. LIGAMENTS: Anterior and posterior tibiofibular ligaments are intact. Anterior talofibular ligament appears attenuated. Posterior talofibular ligament intact Calcaneofibular ligament intact Deltoid ligament intact PLANTAR FASCIA: Unremarkable ACHILLES TENDON: Tiny focal of signal abnormality at the insertion site on the posterior calcaneus. PRE ACHILLES FAT PAD: No abnormal signal MEDIAL TENDONS: Tibialis posterior tendon: Intact Flexor digitorum longus tendon: Intact Flexor hallucis longus tendon: Intact LATERAL TENDONS: Peroneus brevis tendon: Intact Peroneus longus tendon: Mild tenosynovitis IMPRESSION: 1. Small focus signal abnormality at the insertional aspect the Achilles tendon on the posterior calc aneus. No high-grade tear. 2. Mild tenosynovitis of peroneus longus tendon. No tear. Peroneus brevis appears unremarkable. 3. Somewhat attenuated anterior talofibular ligament. Probably related to non recent tearing. 4. DATA REPOSITORY:
== END 2021-04-09 00:44 ==
PROVIDERS: PCP Family Medicine; Visit Provider Student in an Organized Health Care Education/Training Program
DX: M25.572 Pain in left ankle and joints of left foot (principal); M25.372 Other instability, left ankle; M65.872 Other synovitis and tenosynovitis, left ankle and foot; M67.874 Other specified disorders of tendon, left ankle and foot
CPT/HCPCS: 73721

== ENCOUNTER 2021-10-29 03:01 | Outpatient (CLI) | payer MEDICAID, SELFPAY ==
[2021-10-29 09:00] LABS: Source Nasal/Nares
[2021-10-29 14:45] LABS: COVID-19 PCR Negative (Negative)
[2021-10-29 15:56] LABS: Abs Immature Grans 0.04 10^3/uL (0.0-0.06); Absolute Basophil Count 0.05 10^3/uL (0.0-0.2); Absolute Eosinophil Count 0.43 10^3/uL (0.0-0.7); Absolute Lymphocyte Count 3.59 10^3/uL (1.2-3.4); Absolute Monocyte Count 0.85 10^3/uL (0.1-0.8); Absolute Neutrophil Count 5.27 10^3/uL (1.2-6.7); Basophils % 0.5; Eosinophils % 4.2; HCT 41.2 % (36.0-46.0); HGB 14.3 g/dL (11.2-15.7); Immature Grans % 0.4; Lymphocytes % 35.1; MCH 30.4 pg (27.0-33.0); MCHC 34.7 % (32.0-36.0); MCV 88 fL (80-95); MPV 11.7 fL (8.0-11.0); Monocytes % 8.3; Neutrophils % 51.5; Platelet Count 224 10^3/uL (130-400); RBC 4.71 10^6/uL (3.93-5.22); RDW 12.4 % (11.7-14.6); RDW-SD 39.8 fL; WBC 10.23 10^3/uL (4.4-10.8)
[2021-10-29 16:55] LABS: Anion Gap 10.6 mmol/L (3-11); BUN 9 mg/dL (7-18); CO2 25.4 mmol/L (21.0-32.0); CREATININE 0.7 mg/dL (0.55-1.02); Calcium 9.1 mg/dL (8.5-10.1); Chloride 105 mmol/L (98-107); Glucose 76 mg/dL (74-106); Potassium 4.1 mmol/L (3.5-5.1); Sodium 141 mmol/L (136-145)
[2021-10-29 17:23] LABS: HCG Qual (Serum) Negative
== END 2021-10-29 03:02 | disposition home or self-care (01) ==
LOC: LBO 03:02
PROVIDERS: PCP Family Medicine; Visit Provider Obstetrics & Gynecology Gynecology
DX: Z30.09 Encounter for other general counseling and advice on contraception (principal); Z20.822 Contact with and (suspected) exposure to COVID-19; Z01.818 Encounter for other preprocedural examination; Z01.812 Encounter for preprocedural laboratory examination
CPT/HCPCS: 36415; 80048; 86850; 86900; 86901; 87635; 84703; 85025

== ENCOUNTER 2021-10-31 07:44 | Day surgery (SDC) | payer MEDICAID, SELFPAY ==
[2021-10-31] VITALS (9 sets, daily range): BP systolic 101–138; BP diastolic 51–84; PULSE 51–81; RESP 14–23; TEMP 35.9–36.6; O2SAT 97–100; BMI 27.6
[2021-10-31] MEDS: Lactated Ringers 1,000 ML 125 ML IV (08:12)
--- NOTE | 2021-10-31 08:41 | W.ANESPRE ---
General Info Date of Service Date Performed: 10/31/21 Height: 5 ft 1 in Weight: 66.5 kg Body Mass Index (BMI): 27.6 Surgical Procedure: Operation Date: 10/31/21 09:25 Proposed Procedure Side Surgeon p Salpingectomy Laparoscopic Velma Murcia MD Meds Allergies and Home Medications Allergies Allergy/AdvReac Type Severity Reaction Status Date / Time No Known Allergies Allergy Unverified 10/31/21 08:00 Home Medication Medication Instructions Recorded Unknown [No Known Home Meds] 10/30/21 Current Visit Medications: Current Medications Generic Name Dose Route Start Last Admin Trade Name Freq PRN Reason Stop Dose Admin Ringer's Solution 1,000 mls @ 125 mls/hr 10/31/21 06:00 10/31/21 08:12 IV 11/29/21 23:59 125 mls/hr INFUSION DOMENICA Administration IV Miscellaneous Supplies 1 each 10/31/21 06:00 Iv Access IV 11/29/21 23:59 DIRECTED DOMENICA Sodium Chloride 0 ml 10/31/21 06:00 Normal Saline Flush 10 Ml Syr IV 11/29/21 23:59 PRN PRN Sodium Chloride 0 ml 10/31/21 06:00 Normal Saline 10 Ml Vial IJ 11/29/21 23:59 DIRECTED PRN Sterile Water 0 ml 10/31/21 06:00 Water,Injection,Sterile 10 Ml Vial IJ 11/29/21 23:59 DIRECTED PRN PFSH Active Problems Active Problems: Problem Status Onset Code Encounter for Nexplanon removal Z30.46 Pre-op exam Z01.818 Left ankle instability 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 Right salpingectomy right unruptured ectopic History of adenoidectomy History of dental surgery Tobacco Smoking/Tobacco Use Status: Current every day Tobacco Type: cigarettes Alcohol Alcohol Intake: current Alcohol intake frequency: holidays/special occasions only Alcohol type: wine Substance Use Substance use: Never Substance use type: does not use Vital Signs and Lab Results Vital Signs Most Recent Vital Signs in EMR: Most Recent Vital Signs Temp Pulse Resp BP Pulse Ox 36.5 C 81 16 124/84 99 10/31/21 08:03 10/31/21 08:03 10/31/21 08:03 10/31/21 08:03 10/31/21 08:03 Lab Results Blood Type / Crossmatch: Patient ABO/Rh A Positive 10/29/21 Antibody Screen NEGATIVE 10/29/21 Complete Blood Count: White Blood Count 10.23 10^3/uL (4.4-10.8) 10/29/21 15:35 Red Blood Count 4.71 10^6/uL (3.93-5.22) 10/29/21 15:35 Hemoglobin 14.3 g/dL (11.2-15.7) 10/29/21 15:35 Hematocrit 41.2 % (36.0-46.0) 10/29/21 15:35 Platelet Count 224 10^3/uL (130-400) 10/29/21 15:35 Complete Metabolic Panel: Sodium Level 141 mmol/L (136-145) 10/29/21 15:35 Potassium Level 4.1 mmol/L (3.5-5.1) 10/29/21 15:35 Chloride Level 105 mmol/L (98-107) 10/29/21 15:35 Carbon Dioxide Level 25.4 mmol/L (21.0-32.0) 10/29/21 15:35 Blood Urea Nitrogen 9 mg/dL (7-18) 10/29/21 15:35 Creatinine 0.7 mg/dL (0.55-1.02) 10/29/21 15:35 Estimated GFR/1.73 m2 >= 60.00 (mL/min/1.73m2) 10/29/21 15:35 Calcium Level 9.1 mg/dL (8.5-10.1) 10/29/21 15:35 Glucose Level 76 mg/dL (74-106) 10/29/21 15:35 Liver Function Panel: No Data to Display Coagulation Panel: No Data to Display Cardiac Panel: No Data to Display Arterial Blood Gas: No Data to Display Venous Blood Gas: No Data to Display Pancreas Panel: No Data to Display Thyroid Panel: No Data to Display Infectious Disease: Coronavirus (COVID-19)(PCR) Negative (Negative) 10/29/21 08:55 Coronavirus 2019 Source Nasal/Nares 10/29/21 08:55 Blood Cultures: No Data to Display Toxicology Panel: No Data to Display Panel: Serum HCG, Qualitative Negative 10/29/21 15:35 Anesthesia Assessment and Plan Anesthesia History Personal History: No History of Anesthesia Complications Family History: No Family History of Anesthesia Complications Exercise Tolerance Exercise Tolerance: Metabolic Equivalents>4 Pertinent Negatives Pertinent Negatives: No Symptoms of GERD, No Major Cardiovascular Symptoms or Complaints, No Major Pulmonary Symptoms or Complaints and No History of CVA/TIA Cardiac & Pulmonary Exam Cardiac Exam: Normal S1/S2 Heart Sounds Pulmonary Exam: Clear Bilateral Breath Sounds Implantable Cardiac Device Does patient have a Pacemaker or an ICD?: No Airway Exam Known Difficult Airway: No Mallampati Class: 2 Mouth Opening: Normal (> 3cm) Thyromental Distance: Greater than 3 cm Neck Range of Motion: Full ROM Neck Circumference: Normal Teeth Condition: Normal Dentition ASA Classification ASA Score: ASA 2 Emergency Case?: No NPO Status NPO Status: NPO Clears >2 hours, Solids >8 hours Status Status: Not Relevant due to Medical History Anesthesia Plan Resuscitation Status: Full Code Anesthesia Technique: General Anesthesia Airway Planned: Endotracheal Tube Monitors Used: Standard Monitors
[2021-10-31] MEDS: Bupivacaine 0.25% Pres-Free 10 ML VIAL (09:41)
--- NOTE | 2021-10-31 09:47 | FALL_PTH ---
PATIENT: Fang Hernandez LOC: [facility] U#:[id number] AGE/SX: 31/F ROOM: RE10/31/[address]: Velma Murcia : 1990 BED: DIS: 10/31/2021 SPEC #: [id number] RECD: 10/31/21 12:40 STATUS: DEB REQ #: [id number] FAVIAN: 10/31/21 09:[address]: Velma Murcia DEPT: Surgical Specimen RECD BY: Vidya Mancini ENTERED: 10/31/21 12:41 SP TYPE: Fall OTHR DR: Corinne Marquez Tissues: 1 - FALLOPIAN TUBE (STERILIZATION) Procedures: GROSS AND MICRO LEVEL 2 Comments: [id number]
--- NOTE | 2021-10-31 10:07 | ROE_ITS ---
Date of service: 10/31/21 Time of Service: 09:07 Operative Note Operative Note DATE OF PROCEDURE: 10/31/21 PRE-OP DIAGNOSIS: multiparity desires sterilization Previous right salpingectomy secondary to ectopic PROCEDURE: Laparoscopic left salpingectomy. SURGEON: Velma Murcia ASSISTING SURGEON: Hilda Cartwright ANESTHESIA TYPE: General LMA/ETT Refer to Anesthesia Record ESTIMATED BLOOD LOSS: 0 PATHOLOGY: other (Left fallopian tube to pathology) COMPLICATIONS: None Patient was transported to: PACU Patient's condition: stable Implants: None Indications: 31-year-old G2, P1 female who requested permanent sterilization. Patient was sure that her family was complete and on wish for any future pregnancies even if her life circumstances were to change. Findings: Right fallopian tube surgically absent. Normal right and left ovaries. Normal anterior and posterior cul-de-sac. Procedure Description: Patient was taken to the operating room where she was placed in the dorsal supine position and endotracheal anesthesia was administered without difficulty. SCDs were in place. A surgical timeout was performed. She was prepped and draped in the usual sterile fashion. The umbilical fold was infiltrated with 0.25% Marcaine without epinephrine and 12 mm vertical skin incision was made in the umbilicus. Through this incision a varies needle connected to carbon d ioxide gas was inserted into the abdomen and intra-abdominal placement confirmed by drop in the intra-abdominal pressure. Once a pneumoperitoneum was established a 12 mm Visiport trocar was introduced into the abdomen under direct visualization. The patient was then placed in Trendelenburg and 2 sites on the abdomen approximately 6 cm diagonal to the right of and left of the umbilical incision were transilluminated the skin infiltrated with 0.25% Marcaine incised with a scalpel and underd irect visualization two 5 mm ports were placed in the right and left lower quadrants respectively. The abdomen was inspected with the above-noted findings. The left fallopian tube located and followed out to its fimbriated end and a LigaSure electrocautery device was used to clamp cauterize and transect the fimbria from the left mesosalpinx to the level of the left uterine cornua. The left fallopian tube was then delivered through the 10 mm umbilical port and passed off of the operative field. Left fallopian tube pedicle wasinspected and noted to be hemostatic. Under direct visualization the two 5 mm ports were removed, pneumoperitoneum reduced, and the umbilical port removed. The fascia of the umbilical port site was reapproximated with interrupted suture of 0 Vicryl. The skin of all trocar sites was reapproximated with 4-0 Monocryl and covered with dry sterile dressings. The patient was awakened extubated and transported to recovery area in stable condition. All sponge lap needle counts are correct x2.
[2021-10-31] MEDS: fentaNYL 100 MCG/2 ML VIAL IVP (10:25)
--- NOTE | 2021-10-31 11:03 | W.PM.DSUDISC ---
Discharge Plan Disposition Patient Disposition: HOME Condition: Stable Discharge Details Reason For Visit: laparoscopic tubal sterilization Attending Provider: Velma Murcia Primary Care Provider: Corinne Marquez Home Meds and New Rx's Prescriptions: New oxycodone-acetaminophen [Endocet] 5-325 mg tablet 1 tab PO Q6H MDD 4 PRNQty: 10 0RF Discharge Instructions Additional Instructions: Take Endocet for strong pain. You may take it at the same time as the Ibuprofen. OTC Ibuprofen 3 tablets of 200mg (Motrin/Advil) Make an appointment to see Dr Murcia in 2weeks for an inspection of your incisions. Keep the steri-strips over your incisions until they fall off. You can remove them in one week. Stand Alone Forms: DSU Post Data Entry Coordinator SurgeryW/Incision Activity:: Activity as Tolerated Remove Dressings/Wound Care:: 24 hours Shower/Bathe:: 24 hours Diet:: As Tolerated
--- NOTE | 2021-10-31 12:36 | W.ANESPOSTOP ---
Postoperative Evaluation Date, Time and Location Date Performed: 10/31/21 Time Performed: 11:33 Patient Location: Day Surgery Unit Vital Signs Most Recent Imported Vital Signs: Most Recent Vital Signs Temp Pulse Resp BP Pulse Ox 36 C L 53 L 18 101/64 100 10/31/21 11:24 10/31/21 11:24 10/31/21 11:24 10/31/21 11:24 10/31/21 11:24 Pain Score Most Recent Pain Score: Most Recent Pain Score Pain Level 1 10/31/21 11:24 Assessment Mental Status: Awake (Alert & Oriented to Patient Baseline) Airway and Respiratory Function: Patent airway with normal (patient baseline) respiratory exam Cardiovascular Function: Hemodynamically Stable Hydration Status: Adequately Hydrated Nausea & Vomiting: No Nausea or Vomiting Pain: Pain is tolerable per patient Peripheral Nerve Block: Patient did not receive a nerve block
== END 2021-10-31 12:05 | disposition home or self-care (01) ==
PROVIDERS: PCP Family Medicine; Visit Provider Obstetrics & Gynecology Gynecology
PROC: (CPT 58661; principal; 2021-10-31 09:15)
DX: Z30.2 Encounter for sterilization (principal); F17.210 Nicotine dependence, cigarettes, uncomplicated
CPT/HCPCS: 58661; 88302; J1100; J1885; J2405; J3010

== ENCOUNTER 2022-09-05 15:38 | Outpatient (CLI) | payer MEDICAID, SELFPAY ==
--- NOTE | 2022-09-05 14:20 | DI.RAD_ITS ---
Exam(s) XR FOOT RT COMPLETE EXAM: XR FOOT RT COMPLETE CLINICAL HISTORY: NEUROPATHY, G62.9, PRIMARILY MID 5TH METATARSAL TO TIP OF TOE, NO TRAUMA. TECHNIQUE: 2D digital imaging was performed of the right foot. Three images were obtained. AP, obl ique and lateral views were obtained. COMPARISON: CR RIGHT FOOT COMPLETE from 10/03/2012 FINDINGS: BONES: No acute fracture is present. No bony destructive lesion is seen. There is enthesophyte at the posterior calcaneus. JOINTS: No dislocation present. SOFT TISSUE: Normal. IMPRESSION: Unremarkable radiographs of the right foot. DATA REPOSITORY: RADIATION DOSE DELIVERED:
== END 2022-09-05 15:58 ==
LOC: DI 15:39
PROVIDERS: PCP Family Medicine; Visit Provider Physician Assistant Medical
DX: M25.571 Pain in right ankle and joints of right foot (principal); G62.89 Other specified polyneuropathies; M77.41 Metatarsalgia, right foot
CPT/HCPCS: 73630

== ENCOUNTER 2022-09-05 16:18 | Outpatient (CLI) | payer MEDICAID, SELFPAY ==
[2022-09-05 14:21] LABS: Anion Gap 8.9 mmol/L (3-11); BUN 6 mg/dL (7-18); CO2 26.1 mmol/L (21.0-32.0); CREATININE 0.7 mg/dL (0.55-1.02); Calcium 8.7 mg/dL (8.5-10.1); Chloride 105 mmol/L (98-107); Estimated GFR 118.51 (mL/min/1.73m2); Glucose 97 mg/dL (74-106); Potassium 3.4 mmol/L (3.5-5.1); Sodium 140 mmol/L (136-145)
== END 2022-09-05 16:19 | disposition home or self-care (01) ==
LOC: LBO 16:18
PROVIDERS: PCP Family Medicine; Visit Provider Physician Assistant Medical
DX: G62.9 Polyneuropathy, unspecified (principal)
CPT/HCPCS: 36415; 80048

== ENCOUNTER 2023-01-13 04:03 | Emergency (ER) | payer MEDICAID, SELFPAY ==
--- NOTE | 2023-01-13 04:00 | DI.CT_ITS ---
Exam(s) CT CAROTID NECK CTA EXAM: CT CAROTID NECK CTA CLINICAL HISTORY: right neck pain, r/o vertebral artery pathology. TECHNIQUE: Imaging Protocol: Axial CT angiography was performed with multi-slice acquisition and mu lti-planar and/or 3D reconstructions. CONTRAST MATERIAL: Intravenous: Omnipaque 350 Contrast volume:100 mL COMPARISON: None FINDINGS: CTA NECK W: AORTIC ARCH ANATOMY: Conventional Anterior circulation: Common carotid arteries are patent and ascend with normal luminal diameters. There is no significant stenosis at the carotid bulbs and proximal internal carotid arteries in the neck. No dissection. I nternal carotid arteries in the upper neck and skull base appear intact. Posterior circulation: Both vertebral arteries are patent and originated conventional fashion off of the subclavian arteries . No significant stenosis evident in these vessels. Both ascend with equal normal luminal diameters and no evidence of intraluminal thrombus nor dissection. At the skull base both vertebral arteries contribute to the formation of the basilar artery. There does not appear to be significant impingeme nt of the vertebral arteries within the foramen transverse area in the neck. IMPRESSION: 1. Patent carotid arteries in the neck 2. Vertebral arteries in the neck 3. No evidence of dissection, as per request. RADIATION DOSE DELIVERED: 293.05mGy.cm Total DLP DATA REPOSITORY: All CT scans at this facility are submitted to the National Radiology Data Registry (NRDR) Dose Index Registry (DIR) with the [employer] (ACR). RADIATION OPTIMIZATION: All CT scans at this facility use at least one of these dose optimization te chniques: automated exposure control; mA and/or kV adjustment per patient size (includes targeted exa ms where dose is matched to clinical indication); or iterative reconstruction.
[2023-01-13 04:05] VITALS: BP 154/84; PULSE 90; RESP 16; TEMP 36.9; O2SAT 100
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
[2023-01-13 04:25] LABS: Abs Immature Grans 0.03 10^3/uL (0.0-0.06); Absolute Basophil Count 0.07 10^3/uL (0.0-0.2); Absolute Eosinophil Count 0.48 10^3/uL (0.0-0.7); Absolute Lymphocyte Count 2.81 10^3/uL (1.2-3.4); Absolute Monocyte Count 0.93 10^3/uL (0.1-0.8); Absolute Neutrophil Count 4.47 10^3/uL (1.2-6.7); Basophils % 0.8; Eosinophils % 5.5; HCT 42.9 % (36.0-46.0); HGB 14.7 g/dL (11.2-15.7); Immature Grans % 0.3; MCH 30.7 pg (27.0-33.0); MCHC 34.3 % (32.0-36.0); MCV 90 fL (80-95); MPV 11.2 fL (8.0-11.0); Monocytes % 10.6; Neutrophils % 50.8; Platelet Count 210 10^3/uL (130-400); RBC 4.79 10^6/uL (3.93-5.22); RDW 12.2 % (11.7-14.6); RDW-SD 40.2 fL; WBC 8.79 10^3/uL (4.4-10.8)
[2023-01-13] MEDS: Ketorolac 15 MG/ML VIAL IVP (04:26)
[2023-01-13] MEDS: Lidocaine 5% Patch 1 PATCH TP (04:26)
[2023-01-13] MEDS: Acetaminophen 500 MG TAB 1000 MG PO (04:26)
[2023-01-13] MEDS: Omnipaque 350 MG/ML 100 ML BTL IJ (04:31)
[2023-01-13] MEDS: Normal Saline - Diluent 50 ML VIAL IJ (04:32)
[2023-01-13] MEDS: Normal Saline Flush 10 ML SYR IVP (04:32)
[2023-01-13 04:39] LABS: ALT 17 U/L (14-59); AST 12 U/L (15-37); Albumin 3.8 g/dL (3.4-5.0); Alkaline Phosphatase 65 U/L (46-116); Anion Gap 9.5 mmol/L (3-11); BUN 12 mg/dL (7-18); Bilirubin, Total 0.4 mg/dL (0.2-1.0); CO2 25.5 mmol/L (21.0-32.0); CREATININE 0.7 mg/dL (0.55-1.02); Calcium 8.8 mg/dL (8.5-10.1); Chloride 104 mmol/L (98-107); Estimated GFR 118.51 (mL/min/1.73m2); Glucose 111 mg/dL (74-106); Potassium 3.8 mmol/L (3.5-5.1); Sodium 139 mmol/L (136-145); Total Protein 7.4 g/dL (6.4-8.2)
--- NOTE | 2023-01-13 05:28 | DI.VRAD_ITS ---
PROCEDURE INFORMATION: Exam: CTA Neck With Contrast Exam date and time: 01/13/2023 4:31 AM Age: 32 years old Clinical indication: Prior surgery; Surgery date: 6+ months; Surgery type: Dental surgery; Patient HX: R neck pain, R/O vertebral artery pathology TECHNIQUE: Imaging protocol: Computed tomographic angiography of the neck with contrast. 3D rendering (Not supervised by radiologist): MIP and/or 3D reconstructed images were created by the technologist. Radiation optimization: All CT scans at this facility use at least one of these dose optimization techniques: automated exposure control; mA and/or kV adjustment per patient size (includes targeted exams where dose is matched to clinical indication); or iterative reconstruction. Contrast material: OMNIPAQUE 350; Contrast volume: 85 ml; Contrast route: INTRAVENOUS (IV); COMPARISON: CR XR CHEST 2V PA LATERAL 10/13/2018 7:10 PM FINDINGS: Right common carotid artery: No stenosis. No dissection or occlusion. Right internal carotid artery: No stenosis of the extracranial segment. No dissection or occlusion. Right external carotid artery: No occlusion or stenosis of the origin. Left common carotid artery: No stenosis. No dissection or occlusion. Left internal carotid artery: No stenosis of the extracranial segment. No dissection or occlusion. Left external carotid artery: No occlusion or stenosis of the origin. Right vertebral artery: No stenosis. No dissection or occlusion. Left vertebral artery: No stenosis. No dissection or occlusion. Pharynx: Mild prominence of the palatine tonsils. No peritonsillar abscess identified. Parapharyngeal fat is clean. Soft tissues: Normal. No significant soft tissue swelling. Bones/joints: Unremarkable. IMPRESSION: 1. No acute arterial abnormality identified in the neck. 2. Possible mild tonsillitis. REFERENCES: NASCET CRITERIA. The degree of stenosis in the cervical segment of the internal carotid artery is based on NASCET criteria. Normal is no stenosis. Mild is less than 50% stenosis. Moderate is 50-69% stenosis. Severe is 70% to 99% stenosis. Total occlusion is no detectable patent lumen. Dictated and Authenticated by: Gregg Camilo MD. Ordering:ALBERT Dang MD
[2023-01-13] MEDS: Cyclobenzaprine 10 MG TAB PO (05:37)
[2023-01-13] MEDS: Cyclobenzaprine 10 MG TAB, 3 TABS/BTL PO (05:37)
[2023-01-13 05:40] VITALS: BP 148/76; PULSE 80; RESP 16; O2SAT 98
== END 2023-01-13 06:08 | disposition home or self-care (01) ==
PROVIDERS: Emergency Provider Student in an Organized Health Care Education/Training Program; PCP Family Medicine
DX: M54.2 Cervicalgia (principal); M62.838 Other muscle spasm
CPT/HCPCS: 36415; 70498; 80053; 99285; 85025; 99283; J1885; J3490

== ENCOUNTER 2023-01-13 17:08 | Emergency (ER) | payer MEDICAID, SELFPAY ==
[2023-01-13 17:16] VITALS: BP 128/91; PULSE 82; RESP 18; TEMP 36.8; O2SAT 100
[2023-01-13] MEDS: diazePAM 5 MG TAB PO (17:45)
[2023-01-13] MEDS: oxyCODONE 5 MG TAB PO (17:45)
[2023-01-13] MEDS: Acetaminophen 500 MG TAB 1000 MG PO (17:45)
[2023-01-13] MEDS: Ketorolac 15 MG/ML VIAL IM (17:46)
[2023-01-13 17:52] VITALS: RESP 18
[2023-01-13 17:59] VITALS: BP 140/68; RESP 20; O2SAT 98
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
[2023-01-13 18:55] VITALS: O2SAT 98
[2023-01-13 18:56] VITALS: BP 123/73; PULSE 62; O2SAT 99
== END 2023-01-13 18:55 | disposition home or self-care (01) ==
PROVIDERS: Emergency Provider Student in an Organized Health Care Education/Training Program; PCP Family Medicine
DX: M43.6 Torticollis (principal); F17.210 Nicotine dependence, cigarettes, uncomplicated
CPT/HCPCS: 81025; 96372; 99283; J1885

== ENCOUNTER 2023-03-12 15:05 | Outpatient (REF) | payer MEDICAID, SELFPAY ==
[2023-03-12 15:10] LABS: Source Nasal/Nares
[2023-03-12 15:11] LABS: COVID-19 PCR Negative (Negative)
== END 2023-03-12 15:06 | disposition home or self-care (01) ==
LOC: LBN 15:05
PROVIDERS: PCP Family Medicine; Visit Provider Nurse Practitioner Family
DX: Z11.52 Encounter for screening for COVID-19 (principal)
CPT/HCPCS: 87635

== ENCOUNTER 2024-12-16 20:58 | Emergency (ER) | payer SELFPAY ==
[2024-12-16 21:02] VITALS: BP 124/83; PULSE 64; RESP 20; TEMP 36.7; O2SAT 94
[2024-12-16 21:08] VITALS: RESP 18
--- NOTE | 2024-12-16 21:43 | ED.GENADUL_ITS ---
Discharge Plan Disposition Patient Disposition: Home Condition: Stable Discharge Details Clinical Impression: Pharyngitis, acute Primary Care Provider: Corinne Marquez ED Provider: Mecca Escudero Home Meds and New Rx's Prescriptions: New penicillin V potassium 500 mg tablet 500 mg PO BID 7 Days Qty: 14 0RF Rx Instructions: Take 1 tablet by mouth twice daily for 7 days Discharge Instructions Instructions: Bacterial Upper Respiratory Infection, Adult, Sore Throat, Adult ED Additional Instructions: At this time the rapid swab for strep COVID and flu were negative however do have a culture pending which takes about 2 to 3 days. Due to your clinical presentation I will go ahead and treat you for possible bacterial strep throat infection. Please gargle with warm salt water 3 times daily for the next 3 days. Take the medications with yogurt or a probiotic as directed. Please take Tylenol or Ibuprofen with food every 4-6 hours as needed for pain and swelling. Follow up with primary care provider in 3-5 days if needed. Return to ED sooner if any worsening or concerns. Thanks for allowing us to care for you today :). Referrals: Corinne Marquez [Primary Care Provider, Medicine] - Return if symptoms worsen HPI General Mode of arrival: ambulatory . Date/Time Provider Initiated Documentation: 12/16/24 21:02 . Limitations to Documentation: no limitations . Information obtained by: patient, RN notes reviewed and old records reviewed . HPI Narrative: Patient is a 34-year-old female presents to the ER with 2 days of URI type symptoms sore throat that feels like sandpaper noticed tonsillitis with exudate. Tonsils are 2+ bilaterally. Denies any other associated symptoms. Patient is afebrile upon arrival. Denies any abdominal pain no sick contacts. Speaking in full sentences. Related Data Home Medications ?Medication ?Instructions ?Recorded ?Confirmed penicillin V potassium 500 mg 500 mg PO BID Pharyngiti s 7 days 12/16/24 tablet #14 tabs Previous Rx's ?Medication ?Instructions ?Recorded penicillin V potassium 500 mg 500 mg PO BID Pharyngiti s 7 days 12/16/24 tablet #14 tabs Allergies Allergy/AdvReac Type Severity Reaction Status Date / Time No Known Allergies Allergy Verified 12/16/24 21:01 General Stated Complaint: Sorethroat BALDEMAR: 4 Review of Systems All systems reviewed & are unremarkable except as noted in HPI and below ENT Ears, Nose, Mouth, and Throat: Reports as per HPI, Denies hoarseness, Denies lip swelling and Reports sore throat Respiratory Respiratory: Reports chest congestion and Reports cough Allergic/Immunologic Allergic/Immunologic: Denies lip swelling Exam Const General: cooperative, healthy appearing, comfortable, well developed and well groomed Nutritional Appearance: average body habitus and well nourished Orientation: alert, awake and oriented x3 HENMT Head: normal to inspection Mouth: moist mucous membranes, no audible dysphonia and no muffled voice Teeth and gingiva: dentition normal Throat: uvula midline, abnormal tonsil bilaterally exudates and hypertrophy 2+ and posterior oropharynx abnormal erythema and exudates Course Vital Signs Vital signs: Vital Signs Temperature 36.7 C 12/16/24 21:02 Pulse 64 12/16/24 21:02 Respiratory Rate 20 12/16/24 21:02 Blood Pressure 124/83 12/16/24 21:02 Pulse Oximetry 94 12/16/24 21:02 Temperature 36.7 C 12/16/24 21:02 Temperature Source Oral 12/16/24 21:02 Pulse 64 12/16/24 21:02 Respiratory Rate 18 12/16/24 21:08 Blood Pressure 124/83 12/16/24 21:02 Blood Pressure Position Sitting 12/16/24 21:02 Pulse Oximetry 94 12/16/24 21:02 Oxygen Delivery Method Room Air 12/16/24 21:02 Oxygen Flow Rate 0 12/16/24 21:02 Pain Level 2 12/16/24 21:02 Lab/Test Results Lab/Test Results: 12/16/24 21:19 Pharynx Group A Streptococcus Culture - Pending POC Strep Test-NILE(Rapid) Start: 12/16/24 21:02 Freq: .Rapid Strep Test Status: Active Protocol: Document 12/16/24 21:15 CB (Rec: 12/16/24 21:16 [id number]) Strep test-NILE(Rapid)-POC POC-Strep test-NILE ( Negative Rapid) POC-Strep test-NILE (Rapid) Negative Medical Decision Making Patient is a 34-year-old female presents to the ER with 2 days of URI type symptoms sore throat that feels like sandpaper noticed tonsillitis with exudate. Tonsils are 2+ bilaterally. Denies any other associated symptoms. Patient is afebrile upon arrival. Denies any abdominal pain no sick contacts. Speaking in full sentences. Rapid strep swab negative, culture pending. Rapid COVID and flu swab ordered. Diff Dx includes viral tonsilitis, pharyngitis, Walsh, Covid, Group B strep pharyngitis. Negative rapid COVID flu swab. Will treat for strep with Pen VK 500 mg BID based on clinical presentation with 3+ tonsils with exudates. Patient declined work note and PCR fluid swab. This text was generated using [employer] dictation system, please disregard any oddities of phrase or misspellings. 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
[2024-12-16] MEDS: Penicillin V POTASSIUM 500 MG TAB, 4 TABS/BTL PO (22:04)
[2024-12-16] MEDS: Penicillin V POTASSIUM 500 MG TAB PO (22:04)
[2024-12-16 22:10] VITALS: RESP 18
== END 2024-12-16 22:10 | disposition home or self-care (01) ==
PROVIDERS: Emergency Provider Registered Nurse Emergency; PCP Family Medicine
DX: J02.9 Acute pharyngitis, unspecified (principal); F17.210 Nicotine dependence, cigarettes, uncomplicated
CPT/HCPCS: 87426; 87880; 99283; 87081